=== PATIENT | female | born 1965 | race Caucasian/White ===

== ENCOUNTER → 2017-09-06 | Outpatient (REF) | payer OTHER ==
[2017-09-06 17:18] LABS: FREE T4 0.89 NG/DL (0.76-1.46)
== END ==
LOC: M SFHCCLAY 11:01
DX: E03.9 Hypothyroidism, unspecified (principal)

== ENCOUNTER → 2017-12-13 | Outpatient (REF) | payer OTHER ==
[2017-12-13 16:56] LABS: FREE T4 1.27 NG/DL (0.76-1.46)
== END ==
LOC: M SFHCCLAY 13:22
DX: E03.9 Hypothyroidism, unspecified (principal)

== ENCOUNTER → 2018-07-25 | Outpatient (REF) | payer OTHER ==
[2018-07-25 13:01] LABS: INFLUENZA A AMPLIFICATION POSITIVE (NEGATIVE); INFLUENZA B AMPLIFICATION NEGATIVE (NEGATIVE)
== END ==
LOC: M LAB REF 11:50
PROVIDERS: ATTEND Physician Assistant
DX: J11.1 Influenza due to unidentified influenza virus with other respiratory manifestations (principal)

== ENCOUNTER → 2018-08-07 | Outpatient (REF) | payer OTHER ==
[2018-08-07 17:16] LABS: HEMATOCRIT 41.9 % (36.0-47.0); HEMOGLOBIN 14.2 g/dl (12.0-15.5); MEAN CORPUSCULAR HEMOGLOBIN 30.1 pg (27.0-33.0); MEAN CORPUSCULAR HGB CONC 33.9 g/dl (32.0-36.5); PLATELET COUNT, AUTOMATED 258 10^3/uL (150-450); RED BLOOD COUNT 4.71 10^6/uL (4.00-5.40)
[2018-08-07 17:28] LABS: ALBUMIN 3.4 GM/DL (3.2-5.2); ALT/SGPT 33 U/L (12-78); BILIRUBIN,TOTAL 0.3 MG/DL (0.2-1.0); BLOOD UREA NITROGEN 25 MG/DL (7-18); CALCIUM LEVEL 8.2 MG/DL (8.5-10.1); CARBON DIOXIDE LEVEL 30 MEQ/L (21-32); CHLORIDE LEVEL 106 MEQ/L (98-107); CREATININE FOR GFR 0.82 MG/DL (0.55-1.30); GLOMERULAR FILTRATION RATE > 60.0 (>51); GLUCOSE, FASTING 95 MG/DL (70-100); POTASSIUM SERUM 3.9 MEQ/L (3.5-5.1); SODIUM LEVEL 141 MEQ/L (136-145); TOTAL PROTEIN 6.9 GM/DL (6.4-8.2)
[2018-08-07 17:29] LABS: WHITE BLOOD COUNT 14.3 10^3/uL (4.0-10.0)
[2018-08-07 18:53] LABS: ATYPICAL LYMPH 2 % (0-5); BASOPHILS 1 % (0-4); EOSINOPHILS 1 % (0-5); LYMPHOCYTES 39 % (16-52); MONOCYTES 4 % (0-8); NEUTROPHILS 53 % (35-75); PLATELET ESTIMATE NORMAL (NORMAL)
[2018-08-07 18:59] LABS: SMUDGE CELLS 1+
== END ==
LOC: M SFHCCLAY 11:20
PROVIDERS: ATTEND Nurse Practitioner Family
DX: J44.1 Chronic obstructive pulmonary disease with (acute) exacerbation (principal); R73.9 Hyperglycemia, unspecified

== ENCOUNTER → 2018-09-05 | Outpatient (REF) | payer OTHER | LOC: M SFHCCLAY 11:38 | PROVIDERS: ATTEND Family Medicine | DX: R35.0 Frequency of micturition (principal) ==

== ENCOUNTER → 2019-01-30 | Outpatient (REF) | payer OTHER ==
[2019-01-30 17:13] LABS: APPEARANCE, URINE HAZY (CLEAR); BACTERIA, URINE AUTO 1+ (NEGATIVE); BILIRUBIN, URINE AUTO NEGATIVE (NEGATIVE); BLOOD, URINE BLOOD NEGATIVE (NEGATIVE); COLOR, URINE YELLOW (YELLOW); GLUCOSE, URINE (UA) AUTO NEGATIVE (NEGATIVE); KETONE, URINE AUTO NEGATIVE (NEGATIVE); LEUKOCYTE ESTERASE, URINE AUTO NEGATIVE (NEGATIVE); NITRITE, URINE AUTO NEGATIVE (NEGATIVE); PROTEIN, URINE AUTO NEGATIVE (NEGATIVE); RBC, URINE AUTO 4 /HPF (0-3); SPECIFIC GRAVITY URINE AUTO 1.015 (1.002-1.035); SQUAMOUS EPITHELIAL CELL UR AU 2 /HPF (0-6); UROBILINOGEN, URINE AUTO 0.2 mg/dL (0.0-2.0); WBC, URINE AUTO 1 /HPF (0-3)
== END ==
LOC: M SFHCCLAY 16:14
PROVIDERS: ATTEND Family Medicine
DX: R30.0 Dysuria (principal)

== ENCOUNTER → 2019-02-04 | Outpatient (REF) | payer OTHER ==
[2019-02-04 16:58] LABS: HEMATOCRIT 42.9 % (36.0-47.0); HEMOGLOBIN 14.4 g/dl (12.0-15.5); MEAN CORPUSCULAR HEMOGLOBIN 31.2 pg (27.0-33.0); MEAN CORPUSCULAR HGB CONC 33.6 g/dl (32.0-36.5); MEAN CORPUSCULAR VOLUME 93.1 fl (80.0-96.0); PLATELET COUNT, AUTOMATED 176 10^3/uL (150-450); RED BLOOD COUNT 4.61 10^6/uL (4.00-5.40); WHITE BLOOD COUNT 6.4 10^3/uL (4.0-10.0)
[2019-02-04 17:19] LABS: ALBUMIN 3.8 GM/DL (3.2-5.2); ALT/SGPT 25 U/L (12-78); BILIRUBIN,TOTAL 0.3 MG/DL (0.2-1.0); BLOOD UREA NITROGEN 13 MG/DL (7-18); CALCIUM LEVEL 9.3 MG/DL (8.5-10.1); CARBON DIOXIDE LEVEL 27 MEQ/L (21-32); CHLORIDE LEVEL 107 MEQ/L (98-107); CREATININE FOR GFR 0.88 MG/DL (0.55-1.30); GLOMERULAR FILTRATION RATE > 60.0 (>51); GLUCOSE, FASTING 77 MG/DL (70-100); SODIUM LEVEL 142 MEQ/L (136-145); TOTAL PROTEIN 7.3 GM/DL (6.4-8.2)
[2019-02-05 13:19] LABS: ALBUMIN % 58.9 % (55.8-66.1); ALPHA-1-GLOBULIN % 4.4 % (2.9-4.9); ALPHA-1-GLOBULINS 0.32 GM/DL (0.17-0.41); ALPHA-2-GLOBULINS 0.81 GM/DL (0.42-0.99); ALPHA-2-GLOBULINS % 11.1 % (7.1-11.8); BETA-1-GLOBULINS 0.39 GM/DL (0.28-0.60); BETA-1-GLOBULINS % 5.4 % (4.7-7.2); BETA-2-GLOBULINS 0.31 GM/DL (0.19-0.55); BETA-2-GLOBULINS % 4.3 % (3.2-6.5); GAMMA GLOBULIN % 15.9 % (11.1-18.8); GAMMA GLOBULINS 1.16 GM/DL (0.65-1.58)
== END ==
LOC: M SFHCCLAY 12:52
PROVIDERS: ATTEND Family Medicine
DX: R30.0 Dysuria (principal); D89.2 Hypergammaglobulinemia, unspecified; K74.3 Primary biliary cirrhosis

== ENCOUNTER → 2019-04-07 | Outpatient (REF) | payer OTHER ==
[2019-04-07 17:12] LABS: BASO # 0.1 10^3/uL (0.0-0.2); EOS # 0.2 10^3/uL (0.0-0.5); EOS % 2.5 % (0.0-3.0); HEMATOCRIT 44.7 % (36.0-47.0); HEMOGLOBIN 14.7 g/dl (12.0-15.5); LYMPH # 3.4 10^3/uL (1.5-5.0); LYMPH % 40.9 % (24.0-44.0); MEAN CORPUSCULAR HEMOGLOBIN 31.1 pg (27.0-33.0); MEAN CORPUSCULAR HGB CONC 32.9 g/dl (32.0-36.5); MEAN CORPUSCULAR VOLUME 94.5 fl (80.0-96.0); MONO # 0.6 10^3/uL (0.0-0.8); MONO % 7.6 % (0.0-5.0); NEUTROPHILS % 47.8 % (36.0-66.0); PLATELET COUNT, AUTOMATED 231 10^3/uL (150-450); RED BLOOD COUNT 4.73 10^6/uL (4.00-5.40); WHITE BLOOD COUNT 8.3 10^3/uL (4.0-10.0)
[2019-04-07 17:28] LABS: HEMOGLOBIN A1c 5.5 %
[2019-04-07 17:43] LABS: ALBUMIN 3.7 GM/DL (3.2-5.2); ALT/SGPT 32 U/L (12-78); BILIRUBIN,TOTAL 0.2 MG/DL (0.2-1.0); BLOOD UREA NITROGEN 19 MG/DL (7-18); CALCIUM LEVEL 8.9 MG/DL (8.5-10.1); CARBON DIOXIDE LEVEL 28 MEQ/L (21-32); CHLORIDE LEVEL 104 MEQ/L (98-107); CREATININE FOR GFR 0.84 MG/DL (0.55-1.30); FREE T4 1.27 NG/DL (0.76-1.46); GLOMERULAR FILTRATION RATE > 60.0 (>51); GLUCOSE, FASTING 106 MG/DL (70-100); POTASSIUM SERUM 4.3 MEQ/L (3.5-5.1); SODIUM LEVEL 139 MEQ/L (136-145); TOTAL PROTEIN 7.1 GM/DL (6.4-8.2)
== END ==
LOC: M SFHCCLAY 13:59
PROVIDERS: ATTEND Nurse Practitioner Family
DX: R63.1 Polydipsia (principal); K74.3 Primary biliary cirrhosis; J40 Bronchitis, not specified as acute or chronic; J45.909 Unspecified asthma, uncomplicated; J44.1 Chronic obstructive pulmonary disease with (acute) exacerbation; E03.9 Hypothyroidism, unspecified

== ENCOUNTER → 2019-08-11 | Outpatient (CLI) | payer OTHER ==
--- NOTE | 2019-08-12 03:45 | REP ---
Clinical: Left hand pain. Technique: AP, lateral, bilateral oblique views left hand. Comparison: 06/04/2008 . Findings: The osseous structures and joint spaces are intact and normal. There is no evidence for acute fracture or dislocation. Surrounding soft tissues are unremarkable. No subcutaneous emphysema or radiodense foreign body. Impression: Age-appropriate examination. Electronically Signed by Donn Romero MD 08/12/2019 03:36 A
== END ==
LOC: M CLY 13:59
PROVIDERS: ATTEND Nurse Practitioner Family
DX: M79.642 Pain in left hand (principal)

== ENCOUNTER → 2019-10-28 | Outpatient (REF) | payer OTHER ==
[2019-10-28 11:30] LABS: HEMATOCRIT 43.7 % (36.0-47.0); HEMOGLOBIN 14.3 g/dl (12.0-15.5); MEAN CORPUSCULAR HEMOGLOBIN 29.8 pg (27.0-33.0); MEAN CORPUSCULAR HGB CONC 32.7 g/dl (32.0-36.5); PLATELET COUNT, AUTOMATED 217 10^3/uL (150-450); WHITE BLOOD COUNT 7.9 10^3/uL (4.0-10.0)
[2019-10-28 12:09] LABS: ALBUMIN 3.8 GM/DL (3.2-5.2); ALT/SGPT 49 U/L (12-78); BILIRUBIN,TOTAL 0.4 MG/DL (0.2-1.0); BLOOD UREA NITROGEN 9 MG/DL (7-18); CALCIUM LEVEL 9.3 MG/DL (8.5-10.1); CARBON DIOXIDE LEVEL 25 MEQ/L (21-32); CHLORIDE LEVEL 107 MEQ/L (98-107); CREATININE FOR GFR 0.69 MG/DL (0.55-1.30); FREE T4 1.59 NG/DL (0.76-1.46); GLOMERULAR FILTRATION RATE > 60.0 (>51); GLUCOSE, FASTING 104 MG/DL (70-100); POTASSIUM SERUM 3.9 MEQ/L (3.5-5.1); SODIUM LEVEL 139 MEQ/L (136-145); THYROID STIMULATING HORMONE 0.773 uIU/ML (0.358-3.740); TOTAL PROTEIN 7.6 GM/DL (6.4-8.2)
== END ==
LOC: M SFHCCLAY 08:57
PROVIDERS: ATTEND Nurse Practitioner Family
DX: R30.0 Dysuria (principal); D89.2 Hypergammaglobulinemia, unspecified; K74.3 Primary biliary cirrhosis; J45.909 Unspecified asthma, uncomplicated; J44.1 Chronic obstructive pulmonary disease with (acute) exacerbation; E03.9 Hypothyroidism, unspecified; R63.1 Polydipsia; J40 Bronchitis, not specified as acute or chronic

== ENCOUNTER → 2020-07-13 | Outpatient (REF) | payer OTHER ==
[2020-07-13 17:09] LABS: ALBUMIN 3.8 GM/DL (3.2-5.2); ALT/SGPT 82 U/L (12-78); BILIRUBIN,TOTAL 0.2 MG/DL (0.2-1.0); BLOOD UREA NITROGEN 9 MG/DL (7-18); CALCIUM LEVEL 8.7 MG/DL (8.5-10.1); CARBON DIOXIDE LEVEL 27 MEQ/L (21-32); CHLORIDE LEVEL 107 MEQ/L (98-107); CHOLESTEROL LEVEL 237 MG/DL (<200); CHOLESTEROL RISK RATIO 3.434 (<5); CREATININE FOR GFR 0.78 MG/DL (0.55-1.30); FREE T4 1.57 NG/DL (0.76-1.46); GLOMERULAR FILTRATION RATE > 60.0 (>51); GLUCOSE, FASTING 92 MG/DL (70-100); HDL CHOLESTEROL 69 MG/DL (>40); LDL CHOLESTEROL 147 MG/DL (<100); NON-HDL-C 168 MG/DL; POTASSIUM SERUM 4.4 MEQ/L (3.5-5.1); SODIUM LEVEL 141 MEQ/L (136-145); TOTAL PROTEIN 7.3 GM/DL (6.4-8.2); TRIGLYCERIDES LEVEL 107 MG/DL (<150)
[2020-07-13 18:31] LABS: HEMOGLOBIN A1c 5.5 %
== END ==
LOC: M SFHCCLAY 11:15
PROVIDERS: ATTEND Nurse Practitioner Family
DX: R73.03 Prediabetes (principal)

== ENCOUNTER 2020-10-09 01:12 | Inpatient (IN) | payer OTHER ==
[~2020-10-09] VITALS: Ht 152.4 cm; Wt 67.7 kg
[2020-10-09] MEDS ORDERED: PRED20TA PO (01:39)
[2020-10-09] MEDS ORDERED: INCR1INH INH (01:39)
[2020-10-09] MEDS ORDERED: LEVOTAB10 PO (01:39)
[2020-10-09] MEDS ORDERED: LEVO75TA4 PO (01:39)
[2020-10-09] MEDS ORDERED: ALBU8.5H INH (01:39)
[2020-10-09] MEDS ORDERED: DOXY100C37 PO (01:39)
[2020-10-09] MEDS ORDERED: FLUT1INH3 INH (01:39)
[2020-10-09] MEDS ORDERED: NYST50SS PO (01:39)
[2020-10-09] MEDS ORDERED: LORA-674 PO (01:39)
[2020-10-09] MEDS ORDERED: D3400CAP PO (01:39)
[2020-10-09] MEDS ORDERED: BENZ-18 PO (01:39)
[2020-10-09] MEDS ORDERED: VITA500C24 PO (01:39)
[2020-10-09] MEDS ORDERED: MV M PO (01:39)
[2020-10-09] MEDS ORDERED: URSO300C3 PO (01:39)
[2020-10-09 01:45] LABS: BASO % 0.2 % (0.0-1.0); HEMATOCRIT 41.2 % (36.0-47.0); HEMOGLOBIN 13.6 g/dl (12.0-15.5); LYMPH # 2.8 10^3/uL (1.5-5.0); LYMPH % 21.5 % (24.0-44.0); MEAN CORPUSCULAR HEMOGLOBIN 30.1 pg (27.0-33.0); MEAN CORPUSCULAR VOLUME 91.2 fl (80.0-96.0); MONO # 0.9 10^3/uL (0.0-0.8); MONO % 6.8 % (2.0-8.0); NEUTROPHILS # 9.2 10^3/uL (1.5-8.5); NEUTROPHILS % 70.4 % (36.0-66.0); PLATELET COUNT, AUTOMATED 252 10^3/uL (150-450); RED BLOOD COUNT 4.52 10^6/uL (4.00-5.40)
[2020-10-09 02:19] LABS: ALBUMIN 3.9 GM/DL (3.2-5.2); ALT/SGPT 72 U/L (12-78); BILIRUBIN,DIRECT < 0.1 MG/DL (0.0-0.2); BILIRUBIN,TOTAL 0.4 MG/DL (0.2-1.0); BLOOD UREA NITROGEN 14 MG/DL (7-18); CARBON DIOXIDE LEVEL 27 MEQ/L (21-32); CHLORIDE LEVEL 106 MEQ/L (98-107); CREATININE FOR GFR 0.65 MG/DL (0.55-1.30); GLOMERULAR FILTRATION RATE > 60.0 (>51); GLUCOSE, FASTING 108 MG/DL (70-100); POTASSIUM SERUM 4.6 MEQ/L (3.5-5.1); SODIUM LEVEL 141 MEQ/L (136-145)
--- NOTE | 2020-10-09 02:28 | REPVR ---
PROCEDURE INFORMATION: Exam: XR Chest Exam date and time: 10/09/20 (1:59am) Age: 54 years old Clinical indication: Dyspnea and cough TECHNIQUE: Imaging protocol: XR of the chest Views: 1 view COMPARISON: No relevant prior studies available FINDINGS: Lungs: Unremarkable. No consolidation. Pleural spaces: Unremarkable. No pleural effusions. No pneumothorax. Heart/Mediastinum: Unremarkable. No cardiomegaly. Bones/joints: Unremarkable. IMPRESSION: No acute findings. Electronically signed by: Brittaney Banerjee On 10/09/2020 02:28:06 AM
[2020-10-09] MEDS ORDERED: methylPREDNISolone 125MG 2ML VIAL IV ONE (02:50)
[2020-10-09] MEDS: COMBIVENT RESPIMAT 100-20MCG INHALER 4GM INH SCH ×3 (03:09→03:51)
[2020-10-09] MEDS ORDERED: ALBUTEROL SULFATE 2.5 MG/0.5 ML INH NEB SOLN INH ONE (05:10)
[2020-10-09] MEDS ORDERED: MOM 30ML SUSPENSION UDC PO PRN (05:40)
--- NOTE | 2020-10-09 06:36 | HPEPDOC ---
[facility] Medical History & Physical Date of Admission October 09, 2020 Date of Service: October 09, 2020 Attending Physician: RAJENDRA RICE MD History and Physical CHIEF COMPLAINT: cough HISTORY OF PRESENT ILLNESS: Jacuqelyn Simpson is a 54 year old female who presented to the ED today due to worsening cough and shortness of breath. She states she started feeling unwell about 10 days ago with worsening productive cough. She noticed a clear, thick sputum which is now difficult to produce despite continued chest congestion. She has also had some shortness of breath which started when she was doing her typical work outs (running). She states she feels she cannot breath due to all the coughing. She denies fevers or chills at home. She states she went to her PCP on Saturday and was prescribed prednisone to take. She states she had no improvement from this and went to urgent care on Saturday where she was prescribed doxycycline. She states she picked this up but felt she needed to be seen in the ED due to the severity of her symptoms. Additionally, she was diagnosed at urgent care with oral thrush. She attribute this to using a steroid inhaler and never being told to rinse her mouth afterward. She has some throat soreness. No difficulty or pain with swallowing. She states she has had thrush in the past as well. PAST MEDICAL HISTORY: COPD Asthma Hypothyroidism Primary biliary cirrhosis Low back pain Allergic rhinitis PAST SURGICAL HISTORY: Back surgery x2 section x2 SOCIAL HISTORY: Former smoker 1 pack per week in 20s-30s, unsure when she quit. Secondhand smoke in her home growing up No alcohol use. No illicit substance use. Lives at home with two children and nephew. Dogs and cats at home. FAMILY HISTORY: Adopted, unsure of medical history. Her 2 children are healthy. ALLERGIES: Please see below. REVIEW OF SYSTEMS: CONSTITUTIONAL: Denies fevers, chills, night sweats, fatigue, unexpected change in weight. HEENT: Denies change in vision, change in hearing. CARDIOVASCULAR: Denies chest pain, palpitations, lightheadedness. RESPIRATORY: Per HPI GASTROINTESTINAL: Denies nausea, vomiting, abdominal pain, diarrhea, constipation, blood in stool. GENITOURINARY: Denies dysuria, urinary frequency, urinary urgency. SKIN: Denies rash, lesions. MUSCULOSKELETAL: Denies joint pain or muscle aches. NEUROLOGICAL: Denies headache, dizziness, weakness. PSYCHIATRIC: Denies change in mood. HOME MEDICATIONS: Please see below. PHYSICAL EXAMINATION: VITAL SIGNS: see below GENERAL: Alert, comfortable, in no acute distress HEENT: Normocephalic, atraumatic, sclera anicteric, moist mucous membranes, throat with white patches NECK: Supple, trachea midline, no lymphadenopathy CARDIOVASCULAR: Regular rate and rhythm, normal S1 and S2. No murmurs, rubs, or gallops RESPIRATORY: Diffuse wheezing throughout bilateral lung de la rosa ABDOMEN: Soft, nontender, nondistended, bowel sounds present EXTREMITIES: No cyanosis or edema. Pulses 2+/4 in bilateral upper and lower extremities SKIN: [place], warm, dry NEUROLOGIC: Alert and oriented x3 to person, place and time. No focal deficits appreciated PSYCHIATRIC: Mood and affect appropriate LABORATORY DATA: See below. IMAGING: - CXR No acute findings. MICROBIOLOGY: Please see below. ASSESSMENT: 54 year old female with PMHx of COPD, asthma, hypothyroidism, PBC, allergic rhinitis and low back pain who presented to the ED with worsening productive cough found to be hypoxic, admitted for management of COPD exacerbation PLAN: # Asthma/COPD with acute exacerbation - 2/2 viral bronchitis vs allergic rhinitis - CXR negative for PNA. check sputum culture and procalcitonin. - will start on antibiotics given the severity of her exacerbation, Moxifloxacin day #1 - s/p 125mg IV methylprednisolone in the ED, continue on 80mg q8h - continue on scheduled duonebs q6h with prn albuterol nebs - start on mucinex. ordered acapella and inspiratory spirometer - continue on chronic inhaled therapy, substitutions made for home inhalers based on hospital formulary # Oral candidiasis - 2/2 inhaled steroid, patient has been educated on rinsing mouth after use - continue nystatin suspension day # 1 #Allergic rhinitis - continue on twice daily antihistamines #Hypothyroidism - continue on levothyroxine #Primary biliary cirrhosis - continue on ursodiol DVT prophylaxis: SC lovenox Disposition: admitted to med/surg pending clinical improvement Vital Signs Vital Signs Date Time Temp Pulse Resp B/P (MAP) Pulse Ox O2 Delivery O2 Flow Rate FiO2 10/09/20 04:00 89 18 137/74 (95) 89 Room Air 10/09/20 01:24 98.1 Laboratory Data Labs 24H Laboratory Tests 2 10/09/20 01:40: Immature Granulocyte % (Auto) 1.1, Neutrophils (%) (Auto) 70.4H, Lymphocytes (%) (Auto) 21.5L, Monocytes (%) (Auto) 6.8, Eosinophils (%) (Auto) 0.0, Basophils (%) (Auto) 0.2, Neutrophils # (Auto) 9.2H, Lymphocytes # (Auto) 2.8, Monocytes # (Auto) 0.9H, Eosinophils # (Auto) 0.0, Basophils # (Auto) 0.0, Nucleated Red Blood Cells % (auto) 0.0, Anion Gap 8, Glomerular Filtration Rate > 60.0, Calcium Level 10.0, Total Bilirubin 0.4, Direct Bilirubin < 0.1, Aspartate Amino Transf (AST/SGOT) 64H, Alanine Aminotransferase (ALT/SGPT) 72, Alkaline Phosphatase 123H, Total Protein 8.0, Albumin 3.9, Albumin/Globulin Ratio 1.0L CBC/BMP Laboratory Tests 10/09/20 01:40 Microbiology Microbiology 10/09/20 Respiratory Virus Panel (PCR) ([facility]) - Final, Complete Home Medications Scheduled Ascorbic Acid (Vitamin C) 500 Mg Capsule, 500 MG PO DAILY Benzonatate (Benzonatate) 100 Mg Capsule, 100 MG PO TID Cholecalciferol (Vitamin D3) (Vitamin D3) 10 Mcg Capsule, 50 MCG PO DAILY Doxycycline Monohydrate (Doxycycline Monohydrate) 100 Mg Capsule, 100 MG PO BID STARTED 10/08/20 X 7 DAYS Fluticasone Propion/Salmeterol (Fluticasone-Salmeterol 232-14) 1 Each Aer.pow.ba, 1 PUFF INH BID Levocetirizine Dihydrochloride (Levocetirizine Dihydrochloride) 5 Mg Tablet, 5 MG PO QHS Levothyroxine Sodium (Levothyroxine Sodium) 75 Mcg Tablet, 75 MCG PO DAILY Loratadine (Loratadine) 10 Mg Tablet, 10 MG PO DAILY Mv-Mn/Folic/Lutein/Herbal 293 (Alive Women's 50 Plus Vitamins) 120 Mcg-150 Mcg- 37.5 Mg Tab.chew, 1 EACH PO DAILY Nystatin (Nystatin Oral Susp) 100,000 Unit/1 Ml Oral.susp, 5 ML PO QID Prednisone (Prednisone) 20 Mg Tablet, 40 MG PO DAILY STARTED 10/08/20 TAKE 40MGS DAILY X 3 DAYS,THEN 20 MGS DAILY X 4DAYS Umeclidinium Roy (Incruse Ellipta) 62.5 Mcg Blst.w.dev, 1 PUFF INH DAILY Ursodiol (Ursodiol) 300 Mg Capsule, 300 MG PO BID Scheduled PRN Albuterol Sulfate (Albuterol Sulfate Hfa) 8.5 Gm Hfa.aer.ad, 2 PUFFS INH PRN PRN for BRONCHOSPASM Allergies Coded Allergies: Cephalosporins (Verified Allergy, Mild, HIVES, 10/09/20) cyclobenzaprine (Verified Allergy, Mild, HIVES, 10/09/20) morphine (Verified Allergy, Mild, HIVES, 10/09/20) codeine (Verified Adverse Reaction, Mild, GI UPSET, 10/09/20) hydrocodone (Verified Adverse Reaction, Unknown, GI UPSET, 10/09/20) GME ATTESTATION GME ATTESTATION My faculty preceptor for this patient encounter was physically present during the encounter and was fully available. All aspects of the patient interview, examination, medical decision making process, and medical care plan development were reviewed and approved by the faculty preceptor. The faculty preceptor is aware and concurs with the plan as stated in the body of this note and will attest to such by his/her cosignature. ATTENDING NOTE IHamida, have independently examined this patient and performed my own physical exam, as well as reviewed the documentation and edited where necessary. I have discussed in detail with the resident / student the findings and plan of treatment as documented by the resident / student and edited their note. I agree with their findings and treatment plan and have edited their documentation. I will continue to follow the patient during this hospital stay. DEVANTE MORRIS D.O. October 09, 2020 05:30 RAJENDRA RICE MD October 10, 2020 02:26
[2020-10-09] MEDS: IPRATROPIUM 0.5MG/ALBUTEROL 2.5MG INH SOL UD 3ML (DUONEB) NEB SCH ×3 (08:00→19:22)
[2020-10-09] MEDS: MOXIFLOXACIN 400 MG TAB PO SCH (08:28)
[2020-10-09 08:51] VITALS: BP 132/78
[2020-10-09] MEDS ORDERED: guaiFENesin ER 600 MG TAB PO SCH (09:00)
[2020-10-09] MEDS: FLUTICASONE HFA 220 MCG 12 GM INHALER (FLOVENT) INH SCH ×2 (09:38→19:22)
[2020-10-09] MEDS: ENOXAPARIN 40MG/0.4ML SYRINGE (J1650 PER 10MG) SC SCH (09:40)
[2020-10-09] MEDS: NYSTATIN 500,000 U/5 ML SUSP UDC PO SCH ×4 (09:40→20:17)
[2020-10-09] MEDS: LEVOTHYROXINE 75MCG TABLET (0.075MG) PO SCH (09:40)
[2020-10-09] MEDS: ASCORBIC ACID 500 MG TAB PO SCH (09:40)
[2020-10-09] MEDS: LORATADINE 10 MG TAB PO SCH (09:40)
--- NOTE | 2020-10-09 10:10 | ECGEPIP ---
[facility] - ED Test Date: 2020-10-09 Pat Name: ANALI CASEY Department: Room: [facility] Gender: Female Composite Technician: [place] : 1965 Requested By: MAKI Vincent Order Number: [id number] Reading MD: Kenneth Yoo Measurements Intervals [place] Rate: 85 P: 75 PA: 130 QRS: 66 QRSD: 68 T: 84 QT: 334 QTc: 397 Interpretive Statements Normal sinus rhythm POOR R WAVE PROGRESSION NO PRIORS FOR COMPARISON Electronically Signed on 10-09-2020 10:09:42 EDT by Kenneth Yoo
[2020-10-09] MEDS: ursodioL 300 MG CAP PO SCH ×2 (10:43→20:18)
[2020-10-09] MEDS: TIOTROPIUM INHALER/CAPSULE (SPIRIVA) INH SCH (10:52)
--- NOTE | 2020-10-09 11:57 | IPNPDOC ---
Text Note Date of Service The patient was seen on 10/09/20. NOTE Subjective: Patient is a 54-year-old female with a PMHx of COPD / Asthma, Hypothyroidism, Primary biliary cirrhosis, Chronic back pain presents to the ER with worsening shortness of breath and cough. Patient was recently started on prednisone on Saturday after she had seen her PCP and Doxycycline was added Saturday after she went to urgent care. Upon arrival to ER, patient was found to be wheezing and was admitted to the hospitalist service for further evaluation and treatment. Patient was seen and examined at the bedside. Patient is reported improvement of her breathing still reports some wheezing and a cough that she is unable to expectorate sputum. Denies any chest pain or palpitations. No nausea, vomiting, abdominal pain or diarrhea. Objective: Vitals (See below) General: Lying in bed, no acute distress, comfortable, AAOx3 HEENT: NC, AT CVS: RRR, +S1S2 Lungs: Fair air entry b/l, no rhonchi, crackles. Faint wheezing can be appreciated at bases Abdomen: Soft, nondistended and nontender Extremities: - Edema, - Calf tenderness Imaging: CXR 10/09: No acute findings. Assessment and plan: Acute exacerbation of Asthma/COPD - possibly 2/2 viral bronchitis / allergic rhinitis - Currently patient has reported slight improvement of her symptoms - Currently requiring supplemental oxygen and 1-2 L - Physical reveals faint expiratory wheezing - c/w Solumedrol; will reduce dose - c/w inhaled therapy as ordered - c/w Moxifloxacin (Day #1) - Will increase dose of Mucinex / c/w Acapella + Incentive spirometry Oral candidiasis - likely 2/2 inhaled steroid - Patient has been educated on rinsing mouth after use - c/w Nystatin Allergic rhinitis - c/w Loratadine / Cetirizine Hypothyroidism - c/w Levothyroxine Primary biliary cirrhosis - c/w Ursodiol DVT prophylaxis - c/w Lovenox Disposition: - Awaiting clinical improvement Brittney LUNA I+O Brittney LUNA I+O Laboratory Tests 10/09/20 01:40 Vital Signs Date Time Temp Pulse Resp B/P (MAP) Pulse Ox O2 Delivery O2 Flow Rate FiO2 10/09/20 08:26 98.1 88 18 157/74 (101) 95 Nasal Cannula 2.0 LINETTE BENNETT MD October 09, 2020 11:57
[2020-10-09] MEDS ORDERED: methylPREDNISolone 125MG 2ML VIAL IV SCH (12:00)
[2020-10-09 14:00] VITALS: BP 132/66
[2020-10-09] MEDS: guaiFENesin ER 600 MG TAB PO SCH (20:17)
[2020-10-09] MEDS: methylPREDNISolone 125MG 2ML VIAL IV SCH (20:17)
[2020-10-09] MEDS: CETIRIZINE (ZyrTEC) 10 MG TAB PO SCH (20:18)
[2020-10-09] MEDS: RAMELTEON 8 MG TAB (ROZEREM) PO SCH (21:40)
[2020-10-09 22:00] VITALS: BP 134/70
[2020-10-10] VITALS (7 sets, daily range): BP systolic 131–147; BP diastolic 61–72; O2SAT 88–94
[2020-10-10] MEDS: IPRATROPIUM 0.5MG/ALBUTEROL 2.5MG INH SOL UD 3ML (DUONEB) NEB SCH ×4 (01:39→19:27)
[2020-10-10] MEDS: methylPREDNISolone 125MG 2ML VIAL IV SCH ×3 (04:59→20:05)
[2020-10-10] MEDS: MOXIFLOXACIN 400 MG TAB PO SCH (05:00)
[2020-10-10 06:03] LABS: HEMATOCRIT 40.4 % (36.0-47.0); HEMOGLOBIN 13.2 g/dl (12.0-15.5); MEAN CORPUSCULAR HEMOGLOBIN 29.8 pg (27.0-33.0); MEAN CORPUSCULAR HGB CONC 32.7 g/dl (32.0-36.5); MEAN CORPUSCULAR VOLUME 91.2 fl (80.0-96.0); RED BLOOD COUNT 4.43 10^6/uL (4.00-5.40); WHITE BLOOD COUNT 14.9 10^3/uL (4.0-10.0)
[2020-10-10 06:04] LABS: BASO % 0.1 % (0.0-1.0); LYMPH # 1.5 10^3/uL (1.5-5.0); LYMPH % 10.1 % (24.0-44.0); MONO # 0.6 10^3/uL (0.0-0.8); MONO % 3.7 % (2.0-8.0); NEUTROPHILS # 12.7 10^3/uL (1.5-8.5); PLATELET COUNT, AUTOMATED 258 10^3/uL (150-450)
[2020-10-10 06:40] LABS: ALBUMIN 3.6 GM/DL (3.2-5.2); ALT/SGPT 59 U/L (12-78); BILIRUBIN,TOTAL 0.3 MG/DL (0.2-1.0); BLOOD UREA NITROGEN 22 MG/DL (7-18); CALCIUM LEVEL 9.6 MG/DL (8.5-10.1); CARBON DIOXIDE LEVEL 28 MEQ/L (21-32); CHLORIDE LEVEL 104 MEQ/L (98-107); CREATININE FOR GFR 0.74 MG/DL (0.55-1.30); GLOMERULAR FILTRATION RATE > 60.0 (>51); GLUCOSE, FASTING 131 MG/DL (70-100); MAGNESIUM LEVEL 2.2 MG/DL (1.8-2.4); SODIUM LEVEL 138 MEQ/L (136-145); TOTAL PROTEIN 7.5 GM/DL (6.4-8.2)
[2020-10-10] MEDS: FLUTICASONE HFA 220 MCG 12 GM INHALER (FLOVENT) INH SCH ×2 (07:24→19:27)
[2020-10-10] MEDS: TIOTROPIUM INHALER/CAPSULE (SPIRIVA) INH SCH (07:24)
[2020-10-10] MEDS ORDERED: SODIUM CHLORIDE HYPERTONIC 3% 15ML NEB SOL INH PRN (08:20)
[2020-10-10] MEDS: LORATADINE 10 MG TAB PO SCH (09:03)
[2020-10-10] MEDS: ursodioL 300 MG CAP PO SCH ×2 (09:04→20:06)
[2020-10-10] MEDS: ENOXAPARIN 40MG/0.4ML SYRINGE (J1650 PER 10MG) SC SCH (09:04)
[2020-10-10] MEDS: NYSTATIN 500,000 U/5 ML SUSP UDC PO SCH ×4 (09:04→20:05)
[2020-10-10] MEDS: ASCORBIC ACID 500 MG TAB PO SCH (09:04)
[2020-10-10] MEDS: LEVOTHYROXINE 75MCG TABLET (0.075MG) PO SCH (09:04)
[2020-10-10] MEDS: guaiFENesin ER 600 MG TAB PO SCH ×2 (09:04→20:06)
--- NOTE | 2020-10-10 09:22 | IPNPDOC ---
Text Note Date of Service The patient was seen on 10/10/20. NOTE Subjective: Patient is a 54-year-old female with a PMHx of COPD / Asthma, Hypothyroidism, Primary biliary cirrhosis, Chronic back pain presents to the ER with worsening shortness of breath and cough. Patient was recently started on prednisone on Saturday after she had seen her PCP and Doxycycline was added Saturday after she went to urgent care. Upon arrival to ER, patient was found to be wheezing and was admitted to the hospitalist service for further evaluation and treatment. Patient was seen and examined at the bedside. Patient reports that her lower chest congestion has improved, however, she feels that she has mucus in her upper airways, but is unable to be clear. She denies any difficulty with swallowing, nausea, vomiting, abdominal pain or diarrhea. Denies any urinary discomfort. Reports her cough and wheezing have had improvement. Objective: Vitals (See below) General: Patient is sitting up in bed, appears to be comfortable, not in acute distress, oriented to person, place and time HEENT: Normocephalic and atraumatic CVS: +S1S2 Lungs: There is fair air entry bilaterally without any evidence of crackles or rhonchi. There is diffuse wheezing appreciated bilaterally Abdomen: Remains soft without distention or tenderness Extremities: Lower extremities are free of any pitting edema Imaging: CXR 10/09: No acute findings. Assessment and plan: Acute exacerbation of Asthma/COPD - possibly 2/2 viral bronchitis / allergic rhinitis - Reports improvement of breathing, but still reports inability to clear mucus - Currently requiring supplemental oxygen and 1-2 L - Physical reveals faint expiratory wheezing - Sputum culture 10/09: Pending - Respiratory panel 10/09: Negative - c/w Solumedrol; will reduce dose - c/w inhaled therapy as ordered - c/w Moxifloxacin (Day #2) - c/w Mucinex / Acapella / Incentive spirometry - Will add hypertonic saline nebulization / Chest PT Oral candidiasis - likely 2/2 inhaled steroid - Patient has been educated on rinsing mouth after use - c/w Nystatin Allergic rhinitis - c/w Loratadine / Cetirizine Hypothyroidism - c/w Levothyroxine Primary biliary cirrhosis - c/w Ursodiol DVT prophylaxis - c/w Lovenox Disposition: - Awaiting clinical improvement VS,Brittney, I+O VS, Fishbone, I+O Laboratory Tests 10/10/20 05:42 Vital Signs Date Time Temp Pulse Resp B/P (MAP) Pulse Ox O2 Delivery O2 Flow Rate FiO2 10/10/20 06:00 97.1 87 20 131/61 (84) 94 Nasal Cannula 2.0 I&O- Last 24 Hours up to 6 AM 10/10/20 06:00 Intake Total 5380 ml Output Total 3775 ml Balance 1605 ml LINETTE BENNETT MD October 10, 2020 09:22
[2020-10-10] MEDS ORDERED: ISOVUE-370 76% 100ML VIAL As Ordered ONE (14:22)
--- NOTE | 2020-10-10 15:13 | REP ---
INDICATION: SOB / Mucous COMPARISON: None. TECHNIQUE: Axial contrast enhanced images from the thoracic inlet to the upper abdomen using pulmonary embolus technique with multiplanar re-formations. 75 ml Isovue 370 intravenous contrast material administered without complication. This CT examination was performed using the following dose reduction techniques: Automated exposure control, adjustment of mA and/or kv according to the patient's size, and use of iterative reconstruction technique. FINDINGS: Satisfactory enhancement of the pulmonary vasculature is achieved and no filling defects are identified to suggest pulmonary embolus. Further evaluation of the mediastinum demonstrates normal thoracic aorta, heart and pericardium. The bilateral lung de la rosa demonstrate COPD/emphysematous changes without focal consolidation, effusion, or pneumothorax. Tracheobronchial tree is relatively patent although very subtle scattered mucous plugging to the lower lobe bronchioles cannot be excluded. No adenopathy noted. Surrounding musculoskeletal structures intact IMPRESSION: No evidence for pulmonary embolus. No significant acute mediastinal or pleural parenchymal process. <Electronically signed by Donn Romero > 10/10/20 [id number]
[2020-10-10] MEDS: ALBUTEROL SULFATE 2.5 MG/0.5 ML INH NEB SOLN NEB PRN (16:24)
[2020-10-10] MEDS: hydrOXYzine 10MG/5ML SYRUP PO PRN (18:13)
[2020-10-10] MEDS: RAMELTEON 8 MG TAB (ROZEREM) PO SCH (20:05)
[2020-10-10] MEDS: CETIRIZINE (ZyrTEC) 10 MG TAB PO SCH (20:06)
[2020-10-10] MEDS ORDERED: ONDANSETRON 4 MG ORAL DISINTEGRATING TAB SL PRN (22:15)
[2020-10-11 00:06] VITALS: O2SAT 97
[2020-10-11] MEDS: IPRATROPIUM 0.5MG/ALBUTEROL 2.5MG INH SOL UD 3ML (DUONEB) NEB SCH ×4 (01:02→19:34)
[2020-10-11] MEDS: methylPREDNISolone 125MG 2ML VIAL IV SCH ×3 (04:57→20:09)
[2020-10-11] MEDS: MOXIFLOXACIN 400 MG TAB PO SCH (05:00)
[2020-10-11 06:00] VITALS: BP 131/70
[2020-10-11 06:09] LABS: BASO % 0.2 % (0.0-1.0); HEMATOCRIT 43.1 % (36.0-47.0); HEMOGLOBIN 13.8 g/dl (12.0-15.5); LYMPH # 1.3 10^3/uL (1.5-5.0); LYMPH % 7.5 % (24.0-44.0); MEAN CORPUSCULAR HEMOGLOBIN 29.7 pg (27.0-33.0); MEAN CORPUSCULAR VOLUME 92.7 fl (80.0-96.0); MONO # 0.7 10^3/uL (0.0-0.8); MONO % 4.1 % (2.0-8.0); NEUTROPHILS # 15.6 10^3/uL (1.5-8.5); NEUTROPHILS % 87.1 % (36.0-66.0); PLATELET COUNT, AUTOMATED 301 10^3/uL (150-450); RED BLOOD COUNT 4.65 10^6/uL (4.00-5.40); WHITE BLOOD COUNT 17.9 10^3/uL (4.0-10.0)
[2020-10-11 06:32] LABS: ALBUMIN 3.5 GM/DL (3.2-5.2); ALT/SGPT 67 U/L (12-78); BILIRUBIN,TOTAL 0.2 MG/DL (0.2-1.0); BLOOD UREA NITROGEN 30 MG/DL (7-18); CARBON DIOXIDE LEVEL 29 MEQ/L (21-32); CHLORIDE LEVEL 107 MEQ/L (98-107); CREATININE FOR GFR 0.85 MG/DL (0.55-1.30); GLOMERULAR FILTRATION RATE > 60.0 (>51); GLUCOSE, FASTING 111 MG/DL (70-100); POTASSIUM SERUM 4.6 MEQ/L (3.5-5.1); SODIUM LEVEL 139 MEQ/L (136-145)
[2020-10-11] MEDS: TIOTROPIUM INHALER/CAPSULE (SPIRIVA) INH SCH (07:12)
[2020-10-11] MEDS: FLUTICASONE HFA 220 MCG 12 GM INHALER (FLOVENT) INH SCH ×2 (07:15→19:34)
[2020-10-11] MEDS: ursodioL 300 MG CAP PO SCH ×2 (09:19→20:09)
[2020-10-11] MEDS: LEVOTHYROXINE 75MCG TABLET (0.075MG) PO SCH (09:20)
[2020-10-11] MEDS: ENOXAPARIN 40MG/0.4ML SYRINGE (J1650 PER 10MG) SC SCH (09:20)
[2020-10-11] MEDS: NYSTATIN 500,000 U/5 ML SUSP UDC PO SCH ×4 (09:20→20:09)
[2020-10-11] MEDS: LORATADINE 10 MG TAB PO SCH (09:20)
[2020-10-11] MEDS: guaiFENesin ER 600 MG TAB PO SCH ×2 (09:20→20:09)
[2020-10-11] MEDS: ASCORBIC ACID 500 MG TAB PO SCH (09:20)
--- NOTE | 2020-10-11 10:25 | IPNPDOC ---
Text Note Date of Service The patient was seen on 10/11/20. NOTE Subjective: Patient seen and examined at bedside. No acute overnight events reported. Patient still complains of shortness of breath with cough and difficulty expectorating sputum. Objective: Vitals (See below) General: Sitting comfortably at edge of bed HEENT: Normocephalic and atraumatic CVS: +S1S2 Lungs: Diffuse wheezing Abdomen: Remains soft without distention or tenderness Extremities: No edema A/P: 54F with PMHx of COPD / Asthma, Hypothyroidism, Primary biliary cirrhosis, Chronic back pain presents to the ER with worsening shortness of breath and cough. Patient was recently started on prednisone on Saturday after she had seen her PCP and Doxycycline was added Saturday after she went to urgent care. Upon arrival to ER, patient was found to be wheezing and was admitted to the hospitalist service for further evaluation and treatment, admitted for COPD exacerbation. #Acute exacerbation of Asthma/COPD - possibly 2/2 viral bronchitis / allergic rhinitis - Reports improvement of breathing, but still reports inability to clear mucus - Currently requiring supplemental oxygen - Physical reveals faint expiratory wheezing - Sputum culture 10/09: Pending - Respiratory panel 10/09: Negative - c/w Solumedrol; will reduce dose - c/w inhaled therapy as ordered - c/w Moxifloxacin (Day #3) - c/w Mucinex / Acapella / Incentive spirometry - hypertonic saline nebulization / Chest PT #Oral candidiasis - likely 2/2 inhaled steroid - Patient has been educated on rinsing mouth after use - c/w Nystatin #Allergic rhinitis - c/w Loratadine / Cetirizine #Hypothyroidism - c/w Levothyroxine #Primary biliary cirrhosis - c/w Ursodiol #DVT prophylaxis - c/w Lovenox VS,Fishbone, I+O VS, Fishbone, I+O Laboratory Tests 10/11/20 05:48 Vital Signs Date Time Temp Pulse Resp B/P (MAP) Pulse Ox O2 Delivery O2 Flow Rate FiO2 10/11/20 06:00 98.0 82 20 131/70 (90) 94 Nasal Cannula 3.0 I&O- Last 24 Hours up to 6 AM 10/11/20 06:00 Intake Total 2560 ml Output Total 3250 ml Balance -690 ml JUDIT ROBLES MD October 11, 2020 10:25
[2020-10-11 14:00] VITALS: BP 113/77
[2020-10-11] MEDS ORDERED: ISOVUE-370 76% 100ML VIAL As Ordered ONE (15:05)
[2020-10-11] MEDS: hydrOXYzine 10MG/5ML SYRUP PO PRN (15:29)
--- NOTE | 2020-10-11 17:33 | REPVR ---
PROCEDURE INFORMATION: Exam: CT Neck With Contrast Exam date and time: 10/11/2020 3:54 PM Age: 54 years old Clinical indication: Pain; Other: Upper airway mucous; Additional info: Evaluate for upper airway mucous TECHNIQUE: Imaging protocol: Computed tomography images of the neck with contrast. Radiation optimization: All CT scans at this facility use at least one of these dose optimization techniques: automated exposure control; mA and/or kV adjustment per patient size (includes targeted exams where dose is matched to clinical indication); or iterative reconstruction. Contrast material: ISOVUE 370; Contrast volume: 75 ml; Contrast route: INTRAVENOUS (IV); COMPARISON: No relevant prior studies available. FINDINGS: Nasopharynx: Unremarkable. Oropharynx: Unremarkable. No significant tonsillar enlargement. Hypopharynx: Unremarkable. Larynx: Unremarkable. Normal epiglottis. Retropharyngeal space: Unremarkable. Submandibular/Parotid glands: Normal. Glands are normal in size. Thyroid: Normal. No enlarged or calcified nodules. Lymph nodes: Unremarkable. No lymphadenopathy. Trachea: Visualized trachea is unremarkable. Lungs: Lung apices demonstrate heterogenicity consistent with emphysema with bilateral apical thickening. Bones/joints: Unremarkable. No acute fracture. Soft tissues: Unremarkable. No significant soft tissue swelling. IMPRESSION: No acute findings. Electronically signed by: Cristhian Velazquez On 10/11/2020 17:33:37 PM
[2020-10-11 20:00] VITALS: O2SAT 95
[2020-10-11] MEDS: CETIRIZINE (ZyrTEC) 10 MG TAB PO SCH (20:09)
[2020-10-11] MEDS: RAMELTEON 8 MG TAB (ROZEREM) PO SCH (20:10)
[2020-10-11 22:00] VITALS: BP 129/59
[2020-10-12] MEDS: IPRATROPIUM 0.5MG/ALBUTEROL 2.5MG INH SOL UD 3ML (DUONEB) NEB SCH ×4 (01:01→19:46)
[2020-10-12] MEDS: hydrOXYzine 10MG/5ML SYRUP PO PRN ×2 (02:19→20:04)
[2020-10-12] MEDS: methylPREDNISolone 125MG 2ML VIAL IV SCH (03:02)
[2020-10-12 06:00] VITALS: BP 133/60
[2020-10-12] MEDS: MOXIFLOXACIN 400 MG TAB PO SCH (06:07)
[2020-10-12 06:35] LABS: BASO # 0.1 10^3/uL (0.0-0.2); BASO % 0.4 % (0.0-1.0); HEMATOCRIT 42.8 % (36.0-47.0); HEMOGLOBIN 13.6 g/dl (12.0-15.5); LYMPH % 6.3 % (24.0-44.0); MEAN CORPUSCULAR HEMOGLOBIN 29.8 pg (27.0-33.0); MEAN CORPUSCULAR HGB CONC 31.8 g/dl (32.0-36.5); MEAN CORPUSCULAR VOLUME 93.9 fl (80.0-96.0); MONO # 0.4 10^3/uL (0.0-0.8); MONO % 2.5 % (2.0-8.0); NEUTROPHILS % 88.4 % (36.0-66.0); PLATELET COUNT, AUTOMATED 248 10^3/uL (150-450); RED BLOOD COUNT 4.56 10^6/uL (4.00-5.40); WHITE BLOOD COUNT 15.8 10^3/uL (4.0-10.0)
[2020-10-12 07:02] LABS: ALBUMIN 3.3 GM/DL (3.2-5.2); ALT/SGPT 99 U/L (12-78); BILIRUBIN,TOTAL 0.2 MG/DL (0.2-1.0); BLOOD UREA NITROGEN 23 MG/DL (7-18); CALCIUM LEVEL 8.6 MG/DL (8.5-10.1); CARBON DIOXIDE LEVEL 29 MEQ/L (21-32); CHLORIDE LEVEL 105 MEQ/L (98-107); CREATININE FOR GFR 0.66 MG/DL (0.55-1.30); GLOMERULAR FILTRATION RATE > 60.0 (>51); GLUCOSE, FASTING 105 MG/DL (70-100); POTASSIUM SERUM 4.6 MEQ/L (3.5-5.1); SODIUM LEVEL 140 MEQ/L (136-145); TOTAL PROTEIN 6.9 GM/DL (6.4-8.2)
[2020-10-12] MEDS: FLUTICASONE HFA 220 MCG 12 GM INHALER (FLOVENT) INH SCH ×2 (07:29→19:46)
[2020-10-12] MEDS: TIOTROPIUM INHALER/CAPSULE (SPIRIVA) INH SCH (07:29)
[2020-10-12 09:00] VITALS: O2SAT 90
[2020-10-12] MEDS: guaiFENesin ER 600 MG TAB PO SCH ×2 (09:30→20:03)
[2020-10-12] MEDS: NYSTATIN 500,000 U/5 ML SUSP UDC PO SCH ×4 (09:31→20:03)
[2020-10-12] MEDS: ASCORBIC ACID 500 MG TAB PO SCH (09:31)
[2020-10-12] MEDS: ENOXAPARIN 40MG/0.4ML SYRINGE (J1650 PER 10MG) SC SCH (09:31)
[2020-10-12] MEDS: LORATADINE 10 MG TAB PO SCH (09:31)
[2020-10-12] MEDS: LEVOTHYROXINE 75MCG TABLET (0.075MG) PO SCH (09:32)
[2020-10-12] MEDS: ursodioL 300 MG CAP PO SCH ×2 (09:32→20:03)
--- NOTE | 2020-10-12 11:11 | IPNPDOC ---
Text Note Date of Service The patient was seen on 10/12/20. NOTE Subjective: Patient seen and examined at bedside. No acute overnight events reported. Patient still complains of shortness of breath with cough and difficulty expectorating sputum. She states it is entirely in her throat. Objective: Vitals (See below) General: Sitting comfortably at edge of bed HEENT: Normocephalic and atraumatic CVS: +S1S2 Lungs: Diffuse wheezing Abdomen: Remains soft without distention or tenderness Extremities: No edema A/P: 54F with PMHx of COPD / Asthma, Hypothyroidism, Primary biliary cirrhosis, Chronic back pain presents to the ER with worsening shortness of breath and cough. Patient was recently started on prednisone on Saturday after she had seen her PCP and Doxycycline was added Saturday after she went to urgent care. Upon arrival to ER, patient was found to be wheezing and was admitted to the hospitalist service for further evaluation and treatment, admitted for COPD exacerbation. #Acute exacerbation of Asthma/COPD - possibly 2/2 viral bronchitis / allergic rhinitis - Reports improvement of breathing, but still reports inability to clear mucus - Currently requiring supplemental oxygen - Physical reveals faint expiratory wheezing - Sputum culture 10/09: Pending - Respiratory panel 10/09: Negative - c/w Solumedrol; will reduce dose - transition to prednisone - c/w inhaled therapy as ordered - c/w Moxifloxacin (Day #4) - c/w Mucinex / Acapella / Incentive spirometry - hypertonic saline nebulization / Chest PT #Oral candidiasis - likely 2/2 inhaled steroid - Patient has been educated on rinsing mouth after use - c/w Nystatin #Allergic rhinitis - c/w Loratadine / Cetirizine #Hypothyroidism - c/w Levothyroxine #Primary biliary cirrhosis - c/w Ursodiol #DVT prophylaxis - c/w Lovenox Dispo: will obtain swallow eval, and likely ENT c/s VS,Fishbone, I+O VS, Fishbone, I+O Laboratory Tests 10/12/20 05:40 Vital Signs Date Time Temp Pulse Resp B/P (MAP) Pulse Ox O2 Delivery O2 Flow Rate FiO2 10/12/20 06:00 98.4 83 18 133/60 (84) 93 Nasal Cannula 3.0 I&O- Last 24 Hours up to 6 AM 10/12/20 06:00 Intake Total 870 ml Output Total 1900 ml Balance -1030 ml JUDIT ROBLES MD October 12, 2020 11:11
[2020-10-12] MEDS: methylPREDNISolone 40MG 1ML VIAL IV SCH (12:29)
[2020-10-12 14:00] VITALS: BP 154/81
[2020-10-12] MEDS: ALBUTEROL SULFATE 2.5 MG/0.5 ML INH NEB SOLN NEB PRN (17:26)
[2020-10-12] MEDS: RAMELTEON 8 MG TAB (ROZEREM) PO SCH (20:03)
[2020-10-12] MEDS: CETIRIZINE (ZyrTEC) 10 MG TAB PO SCH (20:03)
[2020-10-12 22:00] VITALS: BP 122/61
[2020-10-13] MEDS: methylPREDNISolone 40MG 1ML VIAL IV SCH (00:18)
[2020-10-13 00:25] VITALS: O2SAT 93
[2020-10-13] MEDS: IPRATROPIUM 0.5MG/ALBUTEROL 2.5MG INH SOL UD 3ML (DUONEB) NEB SCH ×4 (01:27→19:37)
[2020-10-13] MEDS: MOXIFLOXACIN 400 MG TAB PO SCH (05:32)
[2020-10-13] MEDS: ALBUTEROL SULFATE 2.5 MG/0.5 ML INH NEB SOLN NEB PRN (05:38)
[2020-10-13 06:00] VITALS: BP 157/78
[2020-10-13 06:26] LABS: BASO # 0.1 10^3/uL (0.0-0.2); BASO % 0.4 % (0.0-1.0); HEMATOCRIT 40.5 % (36.0-47.0); HEMOGLOBIN 13.6 g/dl (12.0-15.5); LYMPH # 0.9 10^3/uL (1.5-5.0); LYMPH % 7.2 % (24.0-44.0); MEAN CORPUSCULAR HEMOGLOBIN 30.6 pg (27.0-33.0); MEAN CORPUSCULAR HGB CONC 33.6 g/dl (32.0-36.5); MEAN CORPUSCULAR VOLUME 91.2 fl (80.0-96.0); MONO # 0.5 10^3/uL (0.0-0.8); MONO % 4.2 % (2.0-8.0); NEUTROPHILS # 10.8 10^3/uL (1.5-8.5); NEUTROPHILS % 84.6 % (36.0-66.0); PLATELET COUNT, AUTOMATED 215 10^3/uL (150-450); RED BLOOD COUNT 4.44 10^6/uL (4.00-5.40); WHITE BLOOD COUNT 12.7 10^3/uL (4.0-10.0)
[2020-10-13 06:54] LABS: ALT/SGPT 90 U/L (12-78); BILIRUBIN,TOTAL 0.2 MG/DL (0.2-1.0); BLOOD UREA NITROGEN 25 MG/DL (7-18); CALCIUM LEVEL 8.6 MG/DL (8.5-10.1); CARBON DIOXIDE LEVEL 29 MEQ/L (21-32); CHLORIDE LEVEL 106 MEQ/L (98-107); CREATININE FOR GFR 0.65 MG/DL (0.55-1.30); GLOMERULAR FILTRATION RATE > 60.0 (>51); GLUCOSE, FASTING 104 MG/DL (70-100); SODIUM LEVEL 139 MEQ/L (136-145); TOTAL PROTEIN 6.8 GM/DL (6.4-8.2)
[2020-10-13] MEDS: TIOTROPIUM INHALER/CAPSULE (SPIRIVA) INH SCH (07:13)
[2020-10-13] MEDS: FLUTICASONE HFA 220 MCG 12 GM INHALER (FLOVENT) INH SCH ×2 (07:13→19:37)
[2020-10-13] MEDS: ENOXAPARIN 40MG/0.4ML SYRINGE (J1650 PER 10MG) SC SCH (09:09)
[2020-10-13] MEDS: LEVOTHYROXINE 75MCG TABLET (0.075MG) PO SCH (09:09)
[2020-10-13] MEDS: guaiFENesin ER 600 MG TAB PO SCH ×2 (09:09→21:13)
[2020-10-13] MEDS: LORATADINE 10 MG TAB PO SCH (09:09)
[2020-10-13] MEDS: ASCORBIC ACID 500 MG TAB PO SCH (09:09)
[2020-10-13] MEDS: NYSTATIN 500,000 U/5 ML SUSP UDC PO SCH ×4 (09:09→21:13)
[2020-10-13] MEDS: predniSONE 20 MG TAB PO SCH (09:09)
[2020-10-13] MEDS: ursodioL 300 MG CAP PO SCH ×2 (09:10→21:13)
[2020-10-13] MEDS: hydrOXYzine 10MG/5ML SYRUP PO PRN ×2 (13:12→21:14)
[2020-10-13] MEDS ORDERED: BARIUM SULFATE 700 MG TABLET (E-Z-DISK) As Ordered ONE (13:25)
[2020-10-13] MEDS ORDERED: VARIBAR PUDDING 40% w/v 230ML TUBE As Ordered ONE (13:25)
[2020-10-13] MEDS ORDERED: VARIBAR NECTAR 40% w/v 240ML SUSP BTL As Ordered ONE (13:25)
[2020-10-13] MEDS ORDERED: E-Z-PAQUE 96% w/w SUSP 176GM BTL As Ordered ONE (13:25)
[2020-10-13 14:00] VITALS: BP 164/93
--- NOTE | 2020-10-13 17:46 | IPNPDOC ---
Text Note Date of Service The patient was seen on 10/13/20. NOTE Subjective: Patient seen and examined at bedside. No acute overnight events reported. Patient still complains of shortness of breath with cough and difficulty expectorating sputum. She states it is entirely in her throat. Swallow evaluation yesterday, esophageal sweep/barium swallow planned for today. Objective: Vitals (See below) General: Sitting comfortably at edge of bed, anxious HEENT: Normocephalic and atraumatic CVS: +S1S2 Lungs: Diffuse wheezing Abdomen: Remains soft without distention or tenderness Extremities: No edema A/P: 54F with PMHx of COPD / Asthma, Hypothyroidism, Primary biliary cirrhosis, Chronic back pain presents to the ER with worsening shortness of breath and cough. Patient was recently started on prednisone on Saturday after she had seen her PCP and Doxycycline was added Saturday after she went to urgent care. Upon arrival to ER, patient was found to be wheezing and was admitted to the hospitalist service for further evaluation and treatment, admitted for COPD exacerbation. #Acute exacerbation of Asthma/COPD - possibly 2/2 viral bronchitis / allergic rhinitis - Reports improvement of breathing, but still reports inability to clear mucus - Currently requiring supplemental oxygen - Sputum culture 10/09: Pending - Respiratory panel 10/09: Negative - c/w prednisone - c/w inhaled therapy as ordered - c/w Moxifloxacin (Day #5) - c/w Mucinex / Acapella / Incentive spirometry - hypertonic saline nebulization / Chest PT #Oral candidiasis - likely 2/2 inhaled steroid - Patient has been educated on rinsing mouth after use - c/w Nystatin #Allergic rhinitis - c/w Loratadine / Cetirizine #Hypothyroidism - c/w Levothyroxine #Primary biliary cirrhosis - c/w Ursodiol #DVT prophylaxis - c/w Lovenox Dispo: pending further imaging, possible ENT c/s pending results VS,Fishbone, I+O VS, Fishbone, I+O Laboratory Tests 10/13/20 05:31 Vital Signs Date Time Temp Pulse Resp B/P (MAP) Pulse Ox O2 Delivery O2 Flow Rate FiO2 10/13/20 14:00 97.8 102 17 164/93 (116) 92 Nasal Cannula 2.0 I&O- Last 24 Hours up to 6 AM 10/13/20 06:00 Intake Total 1170 ml Output Total 1175 ml Balance -5 ml JUDIT ROBLES MD October 13, 2020 17:46
[2020-10-13] MEDS: RAMELTEON 8 MG TAB (ROZEREM) PO SCH (21:13)
[2020-10-13] MEDS: ACETAMINOPHEN TAB 650MG DOSE (2X325MG) PO PRN (21:14)
[2020-10-13] MEDS: CETIRIZINE (ZyrTEC) 10 MG TAB PO SCH (21:14)
[2020-10-13 22:00] VITALS: BP 120/62
[2020-10-14] MEDS: IPRATROPIUM 0.5MG/ALBUTEROL 2.5MG INH SOL UD 3ML (DUONEB) NEB SCH ×4 (01:12→19:47)
[2020-10-14 05:28] VITALS: O2SAT 90
[2020-10-14 06:00] VITALS: BP 147/77
[2020-10-14 06:01] LABS: BASO % 0.3 % (0.0-1.0); EOS % 0.1 % (0.0-3.0); HEMATOCRIT 41.3 % (36.0-47.0); HEMOGLOBIN 13.3 g/dl (12.0-15.5); LYMPH # 3.2 10^3/uL (1.5-5.0); LYMPH % 22.4 % (24.0-44.0); MEAN CORPUSCULAR HEMOGLOBIN 29.6 pg (27.0-33.0); MEAN CORPUSCULAR HGB CONC 32.2 g/dl (32.0-36.5); MEAN CORPUSCULAR VOLUME 91.8 fl (80.0-96.0); MONO # 1.3 10^3/uL (0.0-0.8); MONO % 9.2 % (2.0-8.0); NEUTROPHILS # 9.4 10^3/uL (1.5-8.5); NEUTROPHILS % 66.1 % (36.0-66.0); PLATELET COUNT, AUTOMATED 229 10^3/uL (150-450); WHITE BLOOD COUNT 14.2 10^3/uL (4.0-10.0)
[2020-10-14] MEDS: MOXIFLOXACIN 400 MG TAB PO SCH (06:23)
[2020-10-14] MEDS: ACETAMINOPHEN TAB 650MG DOSE (2X325MG) PO PRN ×2 (06:23→20:22)
[2020-10-14 06:24] LABS: ALBUMIN 3.1 GM/DL (3.2-5.2); ALT/SGPT 76 U/L (12-78); BILIRUBIN,TOTAL 0.3 MG/DL (0.2-1.0); BLOOD UREA NITROGEN 23 MG/DL (7-18); CALCIUM LEVEL 8.6 MG/DL (8.5-10.1); CARBON DIOXIDE LEVEL 31 MEQ/L (21-32); CHLORIDE LEVEL 104 MEQ/L (98-107); CREATININE FOR GFR 0.68 MG/DL (0.55-1.30); GLOMERULAR FILTRATION RATE > 60.0 (>51); GLUCOSE, FASTING 72 MG/DL (70-100); POTASSIUM SERUM 3.9 MEQ/L (3.5-5.1); SODIUM LEVEL 139 MEQ/L (136-145); TOTAL PROTEIN 6.6 GM/DL (6.4-8.2)
[2020-10-14] MEDS: FLUTICASONE HFA 220 MCG 12 GM INHALER (FLOVENT) INH SCH ×2 (07:06→19:47)
[2020-10-14] MEDS: TIOTROPIUM INHALER/CAPSULE (SPIRIVA) INH SCH (07:06)
[2020-10-14] MEDS: predniSONE 20 MG TAB PO SCH (08:19)
[2020-10-14] MEDS: NYSTATIN 500,000 U/5 ML SUSP UDC PO SCH ×4 (08:19→20:21)
[2020-10-14] MEDS: ASCORBIC ACID 500 MG TAB PO SCH (08:19)
[2020-10-14] MEDS: LORATADINE 10 MG TAB PO SCH (08:19)
[2020-10-14] MEDS: LEVOTHYROXINE 75MCG TABLET (0.075MG) PO SCH (08:19)
[2020-10-14] MEDS: ursodioL 300 MG CAP PO SCH ×2 (08:19→20:21)
[2020-10-14] MEDS: guaiFENesin ER 600 MG TAB PO SCH ×2 (08:20→20:21)
[2020-10-14] MEDS: ENOXAPARIN 40MG/0.4ML SYRINGE (J1650 PER 10MG) SC SCH (08:20)
--- NOTE | 2020-10-14 10:12 | IPNPDOC ---
Text Note Date of Service The patient was seen on 10/14/20. NOTE Subjective: Patient seen and examined at bedside. No acute overnight events reported. Patient still complains of shortness of breath with cough and difficulty expectorating sputum. She states it is entirely in her throat. Results of esophageal x-ray still pending. Objective: Vitals (See below) General: Sitting comfortably at edge of bed, anxious HEENT: Normocephalic and atraumatic CVS: +S1S2 Lungs: Diffuse wheezing Abdomen: soft, NT, +BS Extremities: No edema A/P: 54F with PMHx of COPD / Asthma, Hypothyroidism, Primary biliary cirrhosis, Chronic back pain presents to the ER with worsening shortness of breath and cough. Patient was recently started on prednisone on Saturday after she had seen her PCP and Doxycycline was added Saturday after she went to urgent care. Upon arrival to ER, patient was found to be wheezing and was admitted to the hospitalist service for further evaluation and treatment, admitted for COPD exacerbation. #Acute exacerbation of Asthma/COPD - possibly 2/2 viral bronchitis / allergic rhinitis - Reports improvement of breathing, but still reports inability to clear mucus - Currently requiring supplemental oxygen - Sputum culture 10/09: Pending - Respiratory panel 10/09: Negative - c/w prednisone - c/w inhaled therapy as ordered - c/w Moxifloxacin (Day #6) - c/w Mucinex / Acapella / Incentive spirometry - hypertonic saline nebulization / Chest PT #dysphagia/SOB - esophageal x-ray pending results - discussed with ENT - plan for further scoping today - assistance greatly appreciated #Oral candidiasis - likely 2/2 inhaled steroid - Patient has been educated on rinsing mouth after use - c/w Nystatin #Allergic rhinitis - c/w Loratadine / Cetirizine #Hypothyroidism - c/w Levothyroxine #Primary biliary cirrhosis - c/w Ursodiol #DVT prophylaxis - c/w Lovenox Dispo: pending results of x-ray swallow, pending further evaluation by ENT Brittney LUNA, I+O Brittney LUNA, I+O Laboratory Tests 10/14/20 04:56 Vital Signs Date Time Temp Pulse Resp B/P (MAP) Pulse Ox O2 Delivery O2 Flow Rate FiO2 10/14/20 06:00 97.1 82 20 147/77 (100) 91 Nasal Cannula 2.0 I&O- Last 24 Hours up to 6 AM 10/14/20 05:59 Intake Total 3330 ml Output Total 3275 ml Balance 55 ml JUDIT ROBLES MD October 14, 2020 10:12
[2020-10-14] MEDS: hydrOXYzine 10MG/5ML SYRUP PO PRN ×2 (11:02→20:22)
--- NOTE | 2020-10-14 11:46 | IPNPDOC ---
Text Note Date of Service The patient was seen on 10/14/20. NOTE 54yo with COPD feels like she has something stuck in her throat that triggers a coughing jag and then severre dyspnea. No post nasal discharge No throat pain No change in voice HX of smoking PE Voice is nomal there is no stridor or wheezing NARES septal deviation but no mucopus noted on endoxcopy OC/Op no edemat Flexible laryngoscopy shows good vocal cord function no paradoxical motion No edema or masses obstructing airway NECK no masses IMP no physical obstruciton of the upper airway. Some functional issues made worse by dry throat Increase waterr intake Mucolytics Saline nasal spray. Maybe powdered inhaler for lungs is creating some mischeif No airway intervention needed VS,Fishbone, I+O VS, Fishbone, I+O Laboratory Tests 10/14/20 04:56 Vital Signs Date Time Temp Pulse Resp B/P (MAP) Pulse Ox O2 Delivery O2 Flow Rate FiO2 10/14/20 10:00 91 Nasal Cannula 1.0 10/14/20 06:00 97.1 82 20 147/77 (100) I&O- Last 24 Hours up to 6 AM 10/14/20 05:59 Intake Total 3330 ml Output Total 3275 ml Balance 55 ml OLEG ARIAS MD October 14, 2020 11:46
[2020-10-14 14:00] VITALS: BP 118/70
--- NOTE | 2020-10-14 17:28 | REP ---
INDICATION: swallow eval. COMPARISON: None. TECHNIQUE: The procedure was performed by Zita Lambert [facility], under the direct supervision of Dr. Dempsey. The procedure was performed with Celia Johnson from speech pathology present. 5 ml aliquots of thin, pudding, mixed fruit, soft food, and hard food consistency barium was administered. FINDINGS: Flash penetration was visualized with thin consistency barium. The detailed report of this examination will be provided by speech pathology. IMPRESSION: Flash penetration with thin consistency barium, a detailed report will be provided by speech pathology. 1.4 minutes of fluoroscopy time was utilized for this procedure. Some fluoroscopic images are performed with last image hold technology. These images require no additional radiation <Electronically signed by Zita Lambert > 10/13/20 1612 <Electronically signed by Jb Dempsey > 10/14/20 1400
[2020-10-14] MEDS: RAMELTEON 8 MG TAB (ROZEREM) PO SCH (20:21)
[2020-10-14] MEDS: CETIRIZINE (ZyrTEC) 10 MG TAB PO SCH (20:21)
[2020-10-14 22:00] VITALS: BP 117/75
[2020-10-15] VITALS (8 sets, daily range): BP systolic 118–146; BP diastolic 59–69; O2SAT 89–92
[2020-10-15] MEDS: IPRATROPIUM 0.5MG/ALBUTEROL 2.5MG INH SOL UD 3ML (DUONEB) NEB SCH ×4 (01:11→19:20)
[2020-10-15] MEDS: ACETAMINOPHEN TAB 650MG DOSE (2X325MG) PO PRN ×3 (05:34→20:22)
[2020-10-15] MEDS: MOXIFLOXACIN 400 MG TAB PO SCH (05:34)
[2020-10-15 06:22] LABS: BASO % 0.3 % (0.0-1.0); EOS # 0.1 10^3/uL (0.0-0.5); EOS % 0.9 % (0.0-3.0); HEMATOCRIT 39.4 % (36.0-47.0); HEMOGLOBIN 12.9 g/dl (12.0-15.5); LYMPH # 3.2 10^3/uL (1.5-5.0); LYMPH % 23.9 % (24.0-44.0); MEAN CORPUSCULAR HEMOGLOBIN 29.9 pg (27.0-33.0); MEAN CORPUSCULAR HGB CONC 32.7 g/dl (32.0-36.5); MEAN CORPUSCULAR VOLUME 91.4 fl (80.0-96.0); MONO # 1.2 10^3/uL (0.0-0.8); NEUTROPHILS # 8.5 10^3/uL (1.5-8.5); NEUTROPHILS % 64.2 % (36.0-66.0); PLATELET COUNT, AUTOMATED 201 10^3/uL (150-450); RED BLOOD COUNT 4.31 10^6/uL (4.00-5.40); WHITE BLOOD COUNT 13.3 10^3/uL (4.0-10.0)
[2020-10-15 06:45] LABS: ALT/SGPT 74 U/L (12-78); BILIRUBIN,TOTAL 0.3 MG/DL (0.2-1.0); BLOOD UREA NITROGEN 24 MG/DL (7-18); CALCIUM LEVEL 8.4 MG/DL (8.5-10.1); CARBON DIOXIDE LEVEL 31 MEQ/L (21-32); CHLORIDE LEVEL 106 MEQ/L (98-107); CREATININE FOR GFR 0.66 MG/DL (0.55-1.30); GLOMERULAR FILTRATION RATE > 60.0 (>51); GLUCOSE, FASTING 67 MG/DL (70-100); POTASSIUM SERUM 3.7 MEQ/L (3.5-5.1); SODIUM LEVEL 141 MEQ/L (136-145)
[2020-10-15] MEDS: TIOTROPIUM INHALER/CAPSULE (SPIRIVA) INH SCH (07:10)
[2020-10-15] MEDS: FLUTICASONE HFA 220 MCG 12 GM INHALER (FLOVENT) INH SCH ×2 (07:10→19:21)
[2020-10-15] MEDS: ursodioL 300 MG CAP PO SCH ×2 (09:22→20:21)
[2020-10-15] MEDS: ENOXAPARIN 40MG/0.4ML SYRINGE (J1650 PER 10MG) SC SCH (09:22)
[2020-10-15] MEDS: guaiFENesin ER 600 MG TAB PO SCH ×2 (09:22→20:22)
[2020-10-15] MEDS: ASCORBIC ACID 500 MG TAB PO SCH (09:22)
[2020-10-15] MEDS: NYSTATIN 500,000 U/5 ML SUSP UDC PO SCH ×4 (09:22→20:22)
[2020-10-15] MEDS: LEVOTHYROXINE 75MCG TABLET (0.075MG) PO SCH (09:22)
[2020-10-15] MEDS: predniSONE 20 MG TAB PO SCH (09:22)
[2020-10-15] MEDS: LORATADINE 10 MG TAB PO SCH (09:23)
[2020-10-15] MEDS: hydrOXYzine 10MG/5ML SYRUP PO PRN ×2 (09:30→20:22)
--- NOTE | 2020-10-15 11:09 | IPNPDOC ---
Text Note Date of Service The patient was seen on 10/15/20. NOTE Subjective: Patient seen and examined at bedside. No acute overnight events reported. Patient still complains of shortness of breath with cough and difficulty expectorating sputum. Objective: Vitals (See below) General: Sitting comfortably at edge of bed, anxious HEENT: Normocephalic and atraumatic CVS: +S1S2 Lungs: scattered expiratory wheezing Abdomen: soft, NT, +BS Extremities: No edema A/P: 54F with PMHx of COPD / Asthma, Hypothyroidism, Primary biliary cirrhosis, C hronic back pain presents to the ER with worsening shortness of breath and cough. Patient was recently started on prednisone on Saturday after she had seen her PCP and Doxycycline was added Saturday after she went to urgent care. Upon arrival to ER, patient was found to be wheezing and was admitted to the hospitalist service for further evaluation and treatment, admitted for COPD exacerbation. #Acute exacerbation of Asthma/COPD - possibly 2/2 viral bronchitis / allergic rhinitis - Reports improvement of breathing, but still reports inability to clear mucus - Currently requiring supplemental oxygen - weaned to 0.5L - Sputum culture 10/09 - negative - Respiratory panel 10/09: Negative - c/w prednisone - c/w inhaled therapy as ordered - c/w Moxifloxacin (Day #7) - c/w Mucinex / Acapella / Incentive spirometry - hypertonic saline nebulization / Chest PT #dysphagia/SOB - esophageal x-ray pending results - discussed with ENT - s/p scoping, no acute findings - assistance appreciated #Oral candidiasis - likely 2/2 inhaled steroid - Patient has been educated on rinsing mouth after use - c/w Nystatin #Allergic rhinitis - c/w Loratadine / Cetirizine #Hypothyroidism - c/w Levothyroxine #Primary biliary cirrhosis - c/w Ursodiol #DVT prophylaxis - c/w Lovenox Dispo: anticipating discharge in 24-48 hours, may need home O2; VS,Fishbone, I+O VS, Fishbone, I+O Laboratory Tests 10/15/20 05:41 Vital Signs Date Time Temp Pulse Resp B/P (MAP) Pulse Ox O2 Delivery O2 Flow Rate FiO2 10/15/20 06:00 97.3 75 8 122/59 (80) 95 Nasal Cannula 0.5 I&O- Last 24 Hours up to 6 AM 5/15/21 06:00 Intake Total 970 ml Output Total 1500 ml Balance -530 ml JUDIT ROBLES MD October 15, 2020 11:09
[2020-10-15] MEDS ORDERED: CHLORASEPTIC SPRAY MT PRN (15:00)
[2020-10-15] MEDS: CETIRIZINE (ZyrTEC) 10 MG TAB PO SCH (20:22)
[2020-10-15] MEDS: RAMELTEON 8 MG TAB (ROZEREM) PO SCH (20:22)
[2020-10-16] VITALS (9 sets, daily range): BP systolic 126–159; BP diastolic 58–73; O2SAT 86–92
[2020-10-16] MEDS: IPRATROPIUM 0.5MG/ALBUTEROL 2.5MG INH SOL UD 3ML (DUONEB) NEB SCH ×4 (01:18→20:47)
[2020-10-16 06:27] LABS: BASO % 0.3 % (0.0-1.0); EOS # 0.2 10^3/uL (0.0-0.5); EOS % 1.5 % (0.0-3.0); HEMATOCRIT 38.2 % (36.0-47.0); HEMOGLOBIN 12.5 g/dl (12.0-15.5); LYMPH # 3.1 10^3/uL (1.5-5.0); LYMPH % 23.8 % (24.0-44.0); MEAN CORPUSCULAR HEMOGLOBIN 29.8 pg (27.0-33.0); MEAN CORPUSCULAR HGB CONC 32.7 g/dl (32.0-36.5); MONO % 7.4 % (2.0-8.0); NEUTROPHILS # 8.6 10^3/uL (1.5-8.5); NEUTROPHILS % 65.3 % (36.0-66.0); PLATELET COUNT, AUTOMATED 168 10^3/uL (150-450); WHITE BLOOD COUNT 13.2 10^3/uL (4.0-10.0)
[2020-10-16 06:54] LABS: ALBUMIN 2.7 GM/DL (3.2-5.2); ALT/SGPT 78 U/L (12-78); BILIRUBIN,TOTAL 0.3 MG/DL (0.2-1.0); BLOOD UREA NITROGEN 21 MG/DL (7-18); CALCIUM LEVEL 8.9 MG/DL (8.5-10.1); CARBON DIOXIDE LEVEL 28 MEQ/L (21-32); CHLORIDE LEVEL 107 MEQ/L (98-107); GLOMERULAR FILTRATION RATE > 60.0 (>51); GLUCOSE, FASTING 91 MG/DL (70-100); POTASSIUM SERUM 3.2 MEQ/L (3.5-5.1); SODIUM LEVEL 142 MEQ/L (136-145); TOTAL PROTEIN 5.6 GM/DL (6.4-8.2)
[2020-10-16] MEDS: TIOTROPIUM INHALER/CAPSULE (SPIRIVA) INH SCH (07:05)
[2020-10-16] MEDS: FLUTICASONE HFA 220 MCG 12 GM INHALER (FLOVENT) INH SCH ×2 (07:06→20:47)
--- NOTE | 2020-10-16 09:11 | IPNPDOC ---
Text Note Date of Service The patient was seen on 10/16/20. NOTE Subjective: Patient seen and examined at bedside. No acute overnight events reported. Patient slowly feeling better. Still notes some sensation in her throat, but improving. Objective: Vitals (See below) General: Sitting comfortably in chair, anxious HEENT: Normocephalic and atraumatic, nasal cannula wrapped around her chin CVS: +S1S2 Lungs: scattered expiratory wheezing Abdomen: soft, NT, +BS Extremities: No edema A/P: 54F with PMHx of COPD / Asthma, Hypothyroidism, Primary biliary cirrhosis, Chronic back pain presents to the ER with worsening shortness of breath and cough. Patient was recently started on prednisone on Saturday after she had seen her PCP and Doxycycline was added Saturday after she went to urgent care. Upon arrival to ER, patient was found to be wheezing and was admitted to the hospitalist service for further evaluation and treatment, admitted for COPD exacerbation. #Acute exacerbation of Asthma/COPD - possibly 2/2 viral bronchitis / allergic r hinitis - Reports improvement of breathing, but still reports inability to clear mucus - saturating well on room air at rest - Sputum culture 10/09 - negative - Respiratory panel 10/09: Negative - c/w prednisone - c/w inhaled therapy as ordered - c/w Moxifloxacin (Day #8) - c/w Mucinex / Acapella / Incentive spirometry - hypertonic saline nebulization / Chest PT #dysphagia/SOB - esophageal x-ray pending results - discussed with ENT - s/p scoping, no acute findings - assistance appreciated #Oral candidiasis - likely 2/2 inhaled steroid - Patient has been educated on rinsing mouth after use - c/w Nystatin #Allergic rhinitis - c/w Loratadine / Cetirizine #Hypothyroidism - c/w Levothyroxine #Primary biliary cirrhosis - c/w Ursodiol #DVT prophylaxis - c/w Lovenox Dispo: anticipating discharge in 24hours, may need home O2; VS,Fishbone, I+O VS, Fishbone, I+O Laboratory Tests 10/16/20 06:05 Vital Signs Date Time Temp Pulse Resp B/P (MAP) Pulse Ox O2 Delivery O2 Flow Rate FiO2 10/16/20 06:00 98.4 84 18 159/73 (101) 90 Room Air 10/15/20 22:43 0.5 I&O- Last 24 Hours up to 6 AM 10/16/20 06:00 Intake Total 4540 ml Output Total 2475 ml Balance 2065 ml JUDIT ROBLES MD October 16, 2020 09:11
[2020-10-16] MEDS ORDERED: POTASSIUM CHLORIDE 10% LIQ 20 MEQ/15 ML UDC PO ONE (09:15)
[2020-10-16] MEDS: LORATADINE 10 MG TAB PO SCH (09:24)
[2020-10-16] MEDS: predniSONE 20 MG TAB PO SCH (09:24)
[2020-10-16] MEDS: LEVOTHYROXINE 75MCG TABLET (0.075MG) PO SCH (09:24)
[2020-10-16] MEDS: ASCORBIC ACID 500 MG TAB PO SCH (09:24)
[2020-10-16] MEDS: guaiFENesin ER 600 MG TAB PO SCH ×2 (09:24→20:27)
[2020-10-16] MEDS: ursodioL 300 MG CAP PO SCH ×2 (09:24→20:29)
[2020-10-16] MEDS: CHLORASEPTIC SPRAY MT PRN (09:25)
[2020-10-16] MEDS: ENOXAPARIN 40MG/0.4ML SYRINGE (J1650 PER 10MG) SC SCH (09:25)
[2020-10-16] MEDS: RAMELTEON 8 MG TAB (ROZEREM) PO SCH (20:29)
[2020-10-16] MEDS: ACETAMINOPHEN TAB 650MG DOSE (2X325MG) PO PRN (20:29)
[2020-10-16] MEDS: CETIRIZINE (ZyrTEC) 10 MG TAB PO SCH (20:30)
[2020-10-16] MEDS: hydrOXYzine 10MG/5ML SYRUP PO PRN (20:31)
[2020-10-17 01:08] VITALS: O2SAT 91
[2020-10-17] MEDS: IPRATROPIUM 0.5MG/ALBUTEROL 2.5MG INH SOL UD 3ML (DUONEB) NEB SCH ×3 (01:40→13:32)
[2020-10-17 06:00] VITALS: BP 133/78
[2020-10-17] MEDS ORDERED: POTASSIUM CHLORIDE 10% LIQ 20 MEQ/15 ML UDC PO ONE (07:10)
[2020-10-17] MEDS: FLUTICASONE HFA 220 MCG 12 GM INHALER (FLOVENT) INH SCH (07:16)
[2020-10-17] MEDS: TIOTROPIUM INHALER/CAPSULE (SPIRIVA) INH SCH (07:16)
[2020-10-17] MEDS: hydrOXYzine 10MG/5ML SYRUP PO PRN (09:27)
[2020-10-17] MEDS: CHLORASEPTIC SPRAY MT PRN (09:27)
[2020-10-17] MEDS: ACETAMINOPHEN TAB 650MG DOSE (2X325MG) PO PRN (09:27)
[2020-10-17] MEDS: ASCORBIC ACID 500 MG TAB PO SCH (09:28)
[2020-10-17] MEDS: guaiFENesin ER 600 MG TAB PO SCH (09:28)
[2020-10-17] MEDS: ENOXAPARIN 40MG/0.4ML SYRINGE (J1650 PER 10MG) SC SCH (09:28)
[2020-10-17] MEDS: predniSONE 20 MG TAB PO SCH (09:28)
[2020-10-17] MEDS: LEVOTHYROXINE 75MCG TABLET (0.075MG) PO SCH (09:28)
[2020-10-17] MEDS: ursodioL 300 MG CAP PO SCH (09:28)
[2020-10-17] MEDS: LORATADINE 10 MG TAB PO SCH (09:28)
[2020-10-17] MEDS ORDERED: HYDR10EL PO (09:53)
[2020-10-17] MEDS ORDERED: MUCI600T31 PO (09:53)
[2020-10-17] MEDS ORDERED: PRED10TA2 PO (09:53)
[2020-10-17] MEDS ORDERED: CHLORSP MT (09:53)
--- NOTE | 2020-10-17 11:23 | REP ---
INDICATION: sob COMPARISON: 10/09/2020. TECHNIQUE: PA/Lateral FINDINGS: Lungs: Clear, no infiltrate. Heart: Normal in size. Mediastinum: Mediastinal silhouette unremarkable. Pleural angles: Unremarkable.. Bones and soft tissues: Unremarkable. IMPRESSION: No acute pulmonary disease. <Electronically signed by Jb Dempsey > 10/17/20 1111
--- NOTE | 2020-10-17 15:39 | DS.PDOC ---
Discharge Summary General Date of Admission October 09, 2020 at 05:14 Date of Discharge 10/17/20 Discharge Summary PROCEDURES PERFORMED DURING STAY: laryngoscopy, barium swallow DISCHARGE DIAGNOSES: # Asthma/COPD with acute exacerbation # Oral candidiasis #Allergic rhinitis #Hypothyroidism #Primary biliary cirrhosis COMPLICATIONS/CHIEF COMPLAINT: Copd Exacerbation. HISTORY OF PRESENT ILLNESS: 54 year old female presented to the ED today due to worsening cough and shortness of breath. She states she started feeling unwell about 10 days prior, with worsening productive cough. She noticed a clear, thick sputum with difficulty expectorating. She has also had some shortness of breath which started when she was doing her typical work outs (running). She stated she feels she cannot breath due to all the coughing. She denies fevers or chills at home. She stated she went to her PCP on Saturday and was prescribed prednisone to take. She stated she had no improvement from this and went to urgent care on Saturday where she was prescribed doxycycline. She states she picked this up but felt she needed to be seen in the ED due to the severity of her symptoms. Additionally, she was diagnosed at urgent care with oral thrush. She attribute this to using a steroid inhaler and never being told to rinse her mouth af terward. She has some throat soreness. No difficulty or pain with swallowing. She stated she has had thrush in the past as well. HOSPITAL COURSE: 54F with PMHx of COPD / Asthma, Hypothyroidism, Primary biliary cirrhosis, Chronic back pain presents to the ER with worsening shortness of breath and cough. Patient was recently started on prednisone on Saturday after she had seen her PCP and Doxycycline was added Saturday after she went to urgent care. Upon arrival to ER, patient was found to be wheezing and was admitted to the hospitalist service for further evaluation and treatment, admitted for COPD exacerbation. #Acute exacerbation of Asthma/COPD - possibly 2/2 viral bronchitis / allergic rhinitis - Sputum culture 10/09 - negative - Respiratory panel 10/09: Negative - completed 10 day Avelox - c/w Mucinex / Acapella / Incentive spirometry - hypertonic saline nebulization / Chest PT #dysphagia/SOB - esophageal x-ray pending results - discussed with ENT - s/p scoping, no acute findings - assistance appreciated #Oral candidiasis - likely 2/2 inhaled steroid - Patient has been educated on rinsing mouth after use #Allergic rhinitis - c/w Loratadine / Cetirizine #Hypothyroidism - c/w Levothyroxine #Primary biliary cirrhosis - c/w Ursodiol DISCHARGE MEDICATIONS: Please see below. ALLERGIES: Please see below. PHYSICAL EXAMINATION ON DISCHARGE: VITAL SIGNS: Please see below. General: Sitting comfortably in chair, anxious HEENT: Normocephalic and atraumatic, nasal cannula wrapped around her chin CVS: +S1S2 Lungs: scattered expiratory wheezing Abdomen: soft, NT, +BS Extremities: No edema LABORATORY DATA: Please see below. ACTIVITY: [As tolerated]. DISPOSITION: Discharge home DISCHARGE INSTRUCTIONS: 1. PCP in 3-5 days DISCHARGE CONDITION: [Stable]. TIME SPENT ON DISCHARGE: 35 minutes. Vital Signs/I&Os Vital Signs Date Time Temp Pulse Resp B/P (MAP) Pulse Ox O2 Delivery O2 Flow Rate FiO2 10/17/20 11:49 90 Nasal Cannula 1.0 10/17/20 06:00 97.9 69 18 133/78 (96) I&O- Last 24 Hours up to 6 AM 10/17/20 06:00 Intake Total 2100 ml Output Total 3350 ml Balance -1250 ml Microbiology Microbiology 10/09/20 Gram Stain - Final, Complete 10/09/20 Sputum Culture - Final, Complete 10/09/20 Respiratory Virus Panel (PCR) (FARHAT) - Final, Complete Discharge Medications Scheduled Ascorbic Acid (Vitamin C) 500 Mg Capsule, 500 MG PO DAILY, (Reported) Benzonatate (Benzonatate) 100 Mg Capsule, 100 MG PO TID, (Reported) Cholecalciferol (Vitamin D3) (Vitamin D3) 10 Mcg Capsule, 50 MCG PO DAILY, (Reported) Fluticasone Propion/Salmeterol (Fluticasone-Salmeterol 232-14) 1 Each Aer.pow.ba, 1 PUFF INH BID, (Reported) Guaifenesin (Mucinex) 600 Mg Tab.er.12h, 1,200 MG PO BID Levocetirizine Dihydrochloride (Levocetirizine Dihydrochloride) 5 Mg Tablet, 5 MG PO QHS, (Reported) Levothyroxine Sodium (Levothyroxine Sodium) 75 Mcg Tablet, 75 MCG PO DAILY, (Reported) Loratadine (Loratadine) 10 Mg Tablet, 10 MG PO DAILY, (Reported) Mv-Mn/Folic/Lutein/Herbal 293 (Alive Women's 50 Plus Vitamins) 120 Mcg-150 Mcg- 37.5 Mg Tab.chew, 1 EACH PO DAILY, (Reported) Nystatin (Nystatin Oral Susp) 100,000 Unit/1 Ml Oral.susp, 5 ML PO QID, (Reported) Prednisone (Prednisone) 10 Mg Tablet, 10 MG PO TAPER Take 4 tabs daily x 3 days, then 3 tabs daily x 3 days, then 2 tabs daily x 3 days, then 1 tab daily x 3 days and stop Umeclidinium Ophiem (Incruse Ellipta) 62.5 Mcg Blst.w.dev, 1 PUFF INH DAILY, (Reported) Ursodiol (Ursodiol) 300 Mg Capsule, 300 MG PO BID, (Reported) Scheduled PRN Albuterol Sulfate (Albuterol Sulfate Hfa) 8.5 Gm Hfa.aer.ad, 2 PUFFS INH PRN PRN for BRONCHOSPASM, (Reported) Hydroxyzine HCl (Hydroxyzine HCl) 10 Mg/5 Ml Solution, 10 MG PO Q8HP PRN for anxiety Phenol (Sore Throat [place]) 177 Ml [place], 1 SPRAY MT Q4HP PRN for SORE THROAT Allergies Coded Allergies: Cephalosporins (Verified Allergy, Mild, HIVES, 10/09/20) cyclobenzaprine (Verified Allergy, Mild, HIVES, 10/09/20) morphine (Verified Allergy, Mild, HIVES, 10/09/20) codeine (Verified Adverse Reaction, Mild, GI UPSET, 10/09/20) hydrocodone (Verified Adverse Reaction, Unknown, GI UPSET, 10/09/20) JUDIT ROBLES MD October 17, 2020 15:39
== END 2020-10-17 17:45 | disposition home or self-care (01) | DRG 140 ==
LOC: M ED 01:12 → M ED INP 05:14 → ENRESERV 06:10 → M MSPAV 08:51
PROVIDERS: ADMIT Family Medicine; ATTEND Internal Medicine
DX: J44.1 Chronic obstructive pulmonary disease with (acute) exacerbation (principal); J96.01 Acute respiratory failure with hypoxia; B37.0 Candidal stomatitis; C34.90 Malignant neoplasm of unspecified part of unspecified bronchus or lung; K74.3 Primary biliary cirrhosis; J45.901 Unspecified asthma with (acute) exacerbation; E03.9 Hypothyroidism, unspecified; Z79.899 Other long term (current) drug therapy; Z88.5 Allergy status to narcotic agent; Z88.8 Allergy status to other drugs, medicaments and biological substances; Z87.891 Personal history of nicotine dependence

== ENCOUNTER → 2020-10-24 | Outpatient (REF) | payer OTHER ==
[~2020-10-24] MED LIST: ALBU8.5H INH; BENZ-18 PO; CHLORSP MT; D3400CAP PO; DOXY100C37 PO; FLUT1INH3 INH; HYDR10EL PO; INCR1INH INH; LEVO75TA4 PO; LEVOTAB10 PO; LORA-674 PO; MUCI600T31 PO; MV M PO; NYST50SS PO; PRED10TA2 PO; PRED20TA PO; URSO300C3 PO; VITA500C24 PO
== END ==
LOC: M SFHCCLAY 10:49
PROVIDERS: ATTEND Nurse Practitioner Family
DX: J44.1 Chronic obstructive pulmonary disease with (acute) exacerbation (principal)

== ENCOUNTER → 2021-01-24 | Outpatient (REF) | payer OTHER ==
[~2021-01-24] MED LIST changes: -DOXY100C37 PO; +DOXY1CAP62 PO
== END ==
LOC: M SFHCCLAY 11:13
PROVIDERS: ATTEND Physician Assistant
DX: R05 Cough (principal); Z20.822 Contact with and (suspected) exposure to COVID-19

== ENCOUNTER → 2021-08-23 | Outpatient (REF) | payer OTHER ==
[~2021-08-23] MED LIST changes: +DOXY-443 PO; -DOXY1CAP62 PO
[2021-08-24 11:48] LABS: BASO # 0.1 10^3/uL (0.0-0.2); BASO % 1.3 % (0.0-1.0); EOS # 0.4 10^3/uL (0.0-0.5); EOS % 5.9 % (0.0-3.0); HEMATOCRIT 41.1 % (36.0-47.0); HEMOGLOBIN 13.5 g/dl (12.0-15.5); LYMPH # 2.7 10^3/uL (1.5-5.0); MEAN CORPUSCULAR HEMOGLOBIN 30.1 pg (27.0-33.0); MEAN CORPUSCULAR HGB CONC 32.8 g/dl (32.0-36.5); MEAN CORPUSCULAR VOLUME 91.7 fl (80.0-96.0); MONO # 0.6 10^3/uL (0.0-0.8); MONO % 7.8 % (2.0-8.0); NEUTROPHILS # 3.3 10^3/uL (1.5-8.5); NEUTROPHILS % 46.7 % (36.0-66.0); PLATELET COUNT, AUTOMATED 196 10^3/uL (150-450); RED BLOOD COUNT 4.48 10^6/uL (4.00-5.40); WHITE BLOOD COUNT 7.1 10^3/uL (4.0-10.0)
[2021-08-24 12:06] LABS: ALBUMIN 3.7 GM/DL (3.2-5.2); ALT/SGPT 46 U/L (12-78); BILIRUBIN,TOTAL 0.2 MG/DL (0.2-1.0); BLOOD UREA NITROGEN 12 MG/DL (7-18); CALCIUM LEVEL 9.1 MG/DL (8.5-10.1); CARBON DIOXIDE LEVEL 31 MEQ/L (21-32); CHLORIDE LEVEL 106 MEQ/L (98-107); CHOLESTEROL LEVEL 193 MG/DL (<200); CHOLESTEROL RISK RATIO 3.385 (<5); CREATININE FOR GFR 0.73 MG/DL (0.55-1.30); FREE T4 1.17 NG/DL (0.76-1.46); GLOMERULAR FILTRATION RATE > 60.0 (>51); GLUCOSE, FASTING 76 MG/DL (70-100); HDL CHOLESTEROL 57 MG/DL (>40); LDL CHOLESTEROL 111 MG/DL (<100); NON-HDL-C 136 MG/DL; POTASSIUM SERUM 4.5 MEQ/L (3.5-5.1); SODIUM LEVEL 140 MEQ/L (136-145); TOTAL PROTEIN 7.1 GM/DL (6.4-8.2); TRIGLYCERIDES LEVEL 126 MG/DL (<150)
[2021-08-24 12:19] LABS: HEMOGLOBIN A1c 5.7 %
== END ==
LOC: M SFHCCLAY 14:54
PROVIDERS: ATTEND Nurse Practitioner Family
DX: M50.30 Other cervical disc degeneration, unspecified cervical region (principal); J44.9 Chronic obstructive pulmonary disease, unspecified; K74.3 Primary biliary cirrhosis; R20.0 Anesthesia of skin; E03.9 Hypothyroidism, unspecified; F17.210 Nicotine dependence, cigarettes, uncomplicated; Z13.1 Encounter for screening for diabetes mellitus

== ENCOUNTER 2021-11-05 22:49 | Inpatient (IN) | payer OTHER ==
[~2021-11-05] VITALS: Ht 152.4 cm; Wt 65.6 kg
[2021-11-05] MEDS ORDERED: DOXY-443 PO (23:12)
[2021-11-05] MEDS ORDERED: IPRATROPIUM 0.5MG/ALBUTEROL 2.5MG INH SOL UD 3ML (DUONEB) NEB ONE (23:50)
[2021-11-05] MEDS ORDERED: ALBUTEROL SULFATE 2.5 MG/0.5 ML INH NEB SOLN NEB ONE (23:50)
[2021-11-06 00:36] LABS: BASO % 0.1 % (0.0-1.0); HEMATOCRIT 42.4 % (36.0-47.0); HEMOGLOBIN 14.1 g/dl (12.0-15.5); LYMPH # 0.8 10^3/uL (1.5-5.0); LYMPH % 7.1 % (24.0-44.0); MEAN CORPUSCULAR HEMOGLOBIN 30.5 pg (27.0-33.0); MEAN CORPUSCULAR HGB CONC 33.3 g/dl (32.0-36.5); MEAN CORPUSCULAR VOLUME 91.8 fl (80.0-96.0); MONO # 0.3 10^3/uL (0.0-0.8); MONO % 2.8 % (2.0-8.0); NEUTROPHILS # 9.7 10^3/uL (1.5-8.5); NEUTROPHILS % 89.4 % (36.0-66.0); PLATELET COUNT, AUTOMATED 296 10^3/uL (150-450); RED BLOOD COUNT 4.62 10^6/uL (4.00-5.40); WHITE BLOOD COUNT 10.9 10^3/uL (4.0-10.0)
[2021-11-06 01:53] LABS: BLOOD UREA NITROGEN 19 MG/DL (7-18); CALCIUM LEVEL 9.7 MG/DL (8.5-10.1); CARBON DIOXIDE LEVEL 30 MEQ/L (21-32); GLOMERULAR FILTRATION RATE > 60.0 (>51); GLUCOSE, FASTING 128 MG/DL (70-100); POTASSIUM SERUM 4.3 MEQ/L (3.5-5.1); SODIUM LEVEL 142 MEQ/L (136-145)
[2021-11-06 02:04] LABS: CHLORIDE LEVEL 106 MEQ/L (98-107)
[2021-11-06] MEDS ORDERED: BUDE10.2 PO (02:35)
[2021-11-06] MEDS ORDERED: URSO300C3 PO (02:35)
[2021-11-06] MEDS ORDERED: INCR1INH PO (02:35)
[2021-11-06] MEDS ORDERED: PRED20TA PO (02:35)
[2021-11-06] MEDS ORDERED: NYST50SS PO (02:35)
[2021-11-06] MEDS ORDERED: med rec comment (02:49)
[2021-11-06] MEDS ORDERED: HOME MED LIST COMPLETE! XX SCH (02:50)
[2021-11-06] MEDS ORDERED: ACETAMINOPHEN TAB 650MG DOSE (2X325MG) PO PRN (03:00)
[2021-11-06] MEDS ORDERED: MOM 30ML SUSPENSION UDC PO PRN (03:00)
[2021-11-06] MEDS ORDERED: AZITHROMYCIN INJ 500 MG, VIAL MATE ADAPTER 1 EACH in NS 250 ML IV SCH (04:00)
[2021-11-06] MEDS: LEVOTHYROXINE 75MCG TABLET (0.075MG) PO SCH (06:09)
[2021-11-06 07:14] LABS: HEMATOCRIT 41.8 % (36.0-47.0); HEMOGLOBIN 13.4 g/dl (12.0-15.5); MEAN CORPUSCULAR HEMOGLOBIN 29.6 pg (27.0-33.0); MEAN CORPUSCULAR HGB CONC 32.1 g/dl (32.0-36.5); MEAN CORPUSCULAR VOLUME 92.3 fl (80.0-96.0); PLATELET COUNT, AUTOMATED 266 10^3/uL (150-450); RED BLOOD COUNT 4.53 10^6/uL (4.00-5.40); WHITE BLOOD COUNT 11.4 10^3/uL (4.0-10.0)
[2021-11-06 07:22] LABS: BLOOD UREA NITROGEN 17 MG/DL (7-18); CARBON DIOXIDE LEVEL 30 MEQ/L (21-32); CHLORIDE LEVEL 106 MEQ/L (98-107); CREATININE FOR GFR 0.82 MG/DL (0.55-1.30); GLOMERULAR FILTRATION RATE > 60.0 (>51); GLUCOSE, FASTING 150 MG/DL (70-100); POTASSIUM SERUM 4.2 MEQ/L (3.5-5.1); SODIUM LEVEL 141 MEQ/L (136-145)
[2021-11-06] MEDS: IPRATROPIUM 0.5MG/ALBUTEROL 2.5MG INH SOL UD 3ML (DUONEB) NEB SCH ×3 (08:18→20:49)
[2021-11-06] MEDS: SYMBICORT 160/4.5MCG INHALER 6GM INH SCH ×2 (08:18→20:50)
[2021-11-06] MEDS: ENOXAPARIN 40MG/0.4ML SYRINGE (J1650 PER 10MG) SC SCH (08:38)
[2021-11-06] MEDS: ursodioL 300MG CAP PO SCH ×2 (08:39→21:34)
[2021-11-06] MEDS ORDERED: predniSONE 20 MG TAB PO SCH (09:00)
[2021-11-06 09:30] VITALS: BP 146/79
[2021-11-06] MEDS: LevoFLOXacin IV 500 MG in IV 1 EA IV SCH (10:25)
[2021-11-06 14:00] VITALS: BP 118/58
[2021-11-06] MEDS: ALBUTEROL SULFATE 2.5 MG/0.5 ML INH NEB SOLN NEB PRN (16:08)
[2021-11-06 20:00] VITALS: BP 120/60
[2021-11-06] MEDS: methylPREDNISolone 125MG 2ML VIAL IV SCH (21:34)
[2021-11-06] MEDS: guaiFENesin ER 600 MG TAB PO PRN (21:34)
[2021-11-07 05:30] VITALS: BP 164/91
[2021-11-07] MEDS: LEVOTHYROXINE 75MCG TABLET (0.075MG) PO SCH (05:38)
[2021-11-07] MEDS: IPRATROPIUM 0.5MG/ALBUTEROL 2.5MG INH SOL UD 3ML (DUONEB) NEB SCH ×4 (05:38→19:56)
[2021-11-07 06:14] LABS: HEMATOCRIT 43.8 % (36.0-47.0); HEMOGLOBIN 14.2 g/dl (12.0-15.5); MEAN CORPUSCULAR HEMOGLOBIN 29.8 pg (27.0-33.0); MEAN CORPUSCULAR HGB CONC 32.4 g/dl (32.0-36.5); PLATELET COUNT, AUTOMATED 291 10^3/uL (150-450); RED BLOOD COUNT 4.76 10^6/uL (4.00-5.40); WHITE BLOOD COUNT 14.1 10^3/uL (4.0-10.0)
[2021-11-07 06:29] VITALS: BP 150/82
[2021-11-07 06:45] LABS: BLOOD UREA NITROGEN 20 MG/DL (7-18); CALCIUM LEVEL 9.8 MG/DL (8.5-10.1); CARBON DIOXIDE LEVEL 32 MEQ/L (21-32); CHLORIDE LEVEL 102 MEQ/L (98-107); GLOMERULAR FILTRATION RATE > 60.0 (>51); GLUCOSE, FASTING 133 MG/DL (70-100); POTASSIUM SERUM 4.2 MEQ/L (3.5-5.1); SODIUM LEVEL 140 MEQ/L (136-145)
[2021-11-07] MEDS: SYMBICORT 160/4.5MCG INHALER 6GM INH SCH ×2 (07:38→19:56)
[2021-11-07] MEDS ORDERED: predniSONE 20 MG TAB PO SCH (09:00)
[2021-11-07] MEDS: ENOXAPARIN 40MG/0.4ML SYRINGE (J1650 PER 10MG) SC SCH (09:05)
[2021-11-07] MEDS: LevoFLOXacin IV 500 MG in IV 1 EA IV SCH (09:05)
[2021-11-07] MEDS: ursodioL 300MG CAP PO SCH ×2 (09:05→20:17)
[2021-11-07] MEDS: methylPREDNISolone 125MG 2ML VIAL IV SCH (09:05)
[2021-11-07] MEDS: guaiFENesin ER 600 MG TAB PO PRN (10:00)
[2021-11-07] MEDS ORDERED: DOXYCYCLINE HYCLATE 100MG TABLET PO SCH (10:00)
[2021-11-07] MEDS: ALBUTEROL SULFATE 2.5 MG/0.5 ML INH NEB SOLN NEB PRN ×2 (11:31→20:28)
[2021-11-07 14:00] VITALS: BP 147/79
[2021-11-07] MEDS: DOXYCYCLINE HYCLATE 100MG TABLET PO SCH (20:17)
[2021-11-07] MEDS: guaiFENesin ER 600 MG TAB PO SCH (20:17)
[2021-11-07 22:00] VITALS: BP 151/88
[2021-11-08] MEDS: IPRATROPIUM 0.5MG/ALBUTEROL 2.5MG INH SOL UD 3ML (DUONEB) NEB SCH ×4 (01:55→20:24)
[2021-11-08] MEDS: LEVOTHYROXINE 75MCG TABLET (0.075MG) PO SCH (05:30)
[2021-11-08] MEDS: ALBUTEROL SULFATE 2.5 MG/0.5 ML INH NEB SOLN NEB PRN (05:32)
[2021-11-08 06:00] VITALS: BP 135/75
[2021-11-08 06:21] LABS: HEMATOCRIT 43.8 % (36.0-47.0); HEMOGLOBIN 14.1 g/dl (12.0-15.5); MEAN CORPUSCULAR HEMOGLOBIN 29.7 pg (27.0-33.0); MEAN CORPUSCULAR HGB CONC 32.2 g/dl (32.0-36.5); MEAN CORPUSCULAR VOLUME 92.2 fl (80.0-96.0); PLATELET COUNT, AUTOMATED 239 10^3/uL (150-450); RED BLOOD COUNT 4.75 10^6/uL (4.00-5.40); WHITE BLOOD COUNT 15.7 10^3/uL (4.0-10.0)
[2021-11-08 06:52] LABS: BLOOD UREA NITROGEN 26 MG/DL (7-18); CALCIUM LEVEL 9.1 MG/DL (8.5-10.1); CARBON DIOXIDE LEVEL 33 MEQ/L (21-32); CHLORIDE LEVEL 105 MEQ/L (98-107); GLOMERULAR FILTRATION RATE > 60.0 (>51); GLUCOSE, FASTING 77 MG/DL (70-100); POTASSIUM SERUM 4.4 MEQ/L (3.5-5.1); SODIUM LEVEL 140 MEQ/L (136-145)
[2021-11-08] MEDS: SYMBICORT 160/4.5MCG INHALER 6GM INH SCH ×2 (08:57→20:24)
[2021-11-08] MEDS: ENOXAPARIN 40MG/0.4ML SYRINGE (J1650 PER 10MG) SC SCH (09:05)
[2021-11-08] MEDS: guaiFENesin ER 600 MG TAB PO SCH ×2 (09:06→21:26)
[2021-11-08] MEDS: ursodioL 300MG CAP PO SCH ×2 (09:06→21:26)
[2021-11-08] MEDS: predniSONE 20 MG TAB PO SCH (09:06)
[2021-11-08] MEDS: DOXYCYCLINE HYCLATE 100MG TABLET PO SCH ×2 (09:06→21:26)
[2021-11-08] MEDS ORDERED: ACETYLCYSTEINE 10% 30 ML VIAL INH ONE (10:30)
[2021-11-08 14:00] VITALS: BP 116/84
[2021-11-08] MEDS: DEXTROMETHORPHAN 60MG/10ML SUSP 90ML BTL(DELSYM) PO PRN (18:45)
[2021-11-08 22:00] VITALS: BP 133/72
[2021-11-09] MEDS: IPRATROPIUM 0.5MG/ALBUTEROL 2.5MG INH SOL UD 3ML (DUONEB) NEB SCH ×2 (02:00→06:11)
[2021-11-09 06:00] VITALS: BP 136/90
[2021-11-09 06:01] LABS: HEMATOCRIT 43.7 % (36.0-47.0); HEMOGLOBIN 14.1 g/dl (12.0-15.5); MEAN CORPUSCULAR HEMOGLOBIN 29.9 pg (27.0-33.0); MEAN CORPUSCULAR HGB CONC 32.3 g/dl (32.0-36.5); MEAN CORPUSCULAR VOLUME 92.6 fl (80.0-96.0); PLATELET COUNT, AUTOMATED 253 10^3/uL (150-450); RED BLOOD COUNT 4.72 10^6/uL (4.00-5.40); WHITE BLOOD COUNT 12.9 10^3/uL (4.0-10.0)
[2021-11-09 06:27] LABS: BLOOD UREA NITROGEN 24 MG/DL (7-18); CALCIUM LEVEL 8.9 MG/DL (8.5-10.1); CARBON DIOXIDE LEVEL 34 MEQ/L (21-32); CHLORIDE LEVEL 103 MEQ/L (98-107); CREATININE FOR GFR 0.83 MG/DL (0.55-1.30); GLOMERULAR FILTRATION RATE > 60.0 (>51); GLUCOSE, FASTING 68 MG/DL (70-100); POTASSIUM SERUM 4.4 MEQ/L (3.5-5.1); SODIUM LEVEL 139 MEQ/L (136-145)
[2021-11-09] MEDS: LEVOTHYROXINE 75MCG TABLET (0.075MG) PO SCH (06:29)
[2021-11-09] MEDS ORDERED: TIOTROPIUM INHALER/CAPSULE (SPIRIVA) INH SCH (08:00)
[2021-11-09] MEDS: ALBUTEROL SULFATE 2.5 MG/0.5 ML INH NEB SOLN NEB PRN (08:28)
[2021-11-09] MEDS: SYMBICORT 160/4.5MCG INHALER 6GM INH SCH (08:29)
[2021-11-09] MEDS: ursodioL 300MG CAP PO SCH (09:04)
[2021-11-09] MEDS: DOXYCYCLINE HYCLATE 100MG TABLET PO SCH (09:05)
[2021-11-09] MEDS: predniSONE 20 MG TAB PO SCH (09:05)
[2021-11-09] MEDS: guaiFENesin ER 600 MG TAB PO SCH (09:05)
[2021-11-09] MEDS: ENOXAPARIN 40MG/0.4ML SYRINGE (J1650 PER 10MG) SC SCH (09:06)
[2021-11-09] MEDS ORDERED: MUCI600T31 PO (10:51)
[2021-11-09] MEDS ORDERED: PRED10TA2 PO (10:51)
[2021-11-09] MEDS ORDERED: BREO1INH3 PO (10:51)
[2021-11-09] MEDS ORDERED: OMEP40CA4 PO (10:52)
[2021-11-09] MEDS: DEXTROMETHORPHAN 60MG/10ML SUSP 90ML BTL(DELSYM) PO PRN (11:22)
[2021-11-09] MEDS ORDERED: PRED20TA PO (11:45)
[2021-11-09] MEDS ORDERED: IPRA0.00 INH (11:45)
== END 2021-11-09 13:30 | disposition home health service (06) | DRG 140 ==
LOC: EDBD 22:49 → M ED 22:49 → M ED INP 11-06 03:12 → ENRESERV 11-06 08:33 → M MS5PR 11-06 09:30
PROVIDERS: ADMIT Family Medicine; ATTEND Family Medicine
DX: J44.1 Chronic obstructive pulmonary disease with (acute) exacerbation (principal); J96.11 Chronic respiratory failure with hypoxia; K74.3 Primary biliary cirrhosis; Z99.81 Dependence on supplemental oxygen; Z87.891 Personal history of nicotine dependence; Z91.14 Patient's other noncompliance with medication regimen; E03.9 Hypothyroidism, unspecified; J30.2 Other seasonal allergic rhinitis; Z98.1 Arthrodesis status; Z79.2 Long term (current) use of antibiotics; Z79.52 Long term (current) use of systemic steroids; Z79.899 Other long term (current) drug therapy; Z88.1 Allergy status to other antibiotic agents; Z88.5 Allergy status to narcotic agent; Z88.8 Allergy status to other drugs, medicaments and biological substances; D72.829 Elevated white blood cell count, unspecified

== ENCOUNTER → 2021-12-19 | Outpatient (CLI) | payer OTHER ==
[~2021-12-19] MED LIST changes: +BREO1INH3 PO; +BUDE10.2 PO; +INCR1INH PO; +IPRA0.00 INH; +OMEP40CA4 PO; +med rec comment
== END ==
LOC: M CLY 13:30
PROVIDERS: ATTEND Nurse Practitioner Family
DX: M79.641 Pain in right hand (principal)

== ENCOUNTER → 2022-03-13 | Outpatient (CLI) | payer MEDICAID, OTHER | LOC: M PLAIMG 10:03 | PROVIDERS: ATTEND Nurse Practitioner Family | DX: R06.02 Shortness of breath (principal); K76.0 Fatty (change of) liver, not elsewhere classified; I70.0 Atherosclerosis of aorta; I25.10 Atherosclerotic heart disease of native coronary artery without angina pectoris; K44.9 Diaphragmatic hernia without obstruction or gangrene; M51.44 Schmorl's nodes, thoracic region; M41.85 Other forms of scoliosis, thoracolumbar region; J43.2 Centrilobular emphysema; J98.4 Other disorders of lung ==

== ENCOUNTER → 2022-03-20 | Outpatient (REF) | payer OTHER ==
[2022-03-20 18:39] LABS: BASO % 0.2 % (0.0-1.0); HEMATOCRIT 38.3 % (36.0-47.0); HEMOGLOBIN 12.2 g/dl (12.0-15.5); LYMPH # 1.1 10^3/uL (1.5-5.0); LYMPH % 12.8 % (24.0-44.0); MEAN CORPUSCULAR HEMOGLOBIN 28.4 pg (27.0-33.0); MEAN CORPUSCULAR HGB CONC 31.9 g/dl (32.0-36.5); MEAN CORPUSCULAR VOLUME 89.1 fl (80.0-96.0); MONO # 0.1 10^3/uL (0.0-0.8); MONO % 1.7 % (2.0-8.0); NEUTROPHILS # 7.1 10^3/uL (1.5-8.5); NEUTROPHILS % 84.8 % (36.0-66.0); PLATELET COUNT, AUTOMATED 229 10^3/uL (150-450); WHITE BLOOD COUNT 8.4 10^3/uL (4.0-10.0)
[2022-03-20 19:35] LABS: ALBUMIN 3.5 GM/DL (3.2-5.2); ALT/SGPT 38 U/L (12-78); BILIRUBIN,TOTAL 0.2 MG/DL (0.2-1.0); BLOOD UREA NITROGEN 18 MG/DL (7-18); CALCIUM LEVEL 9.2 MG/DL (8.5-10.1); CARBON DIOXIDE LEVEL 27 MEQ/L (21-32); CHLORIDE LEVEL 105 MEQ/L (98-107); CHOLESTEROL LEVEL 219 MG/DL (<200); CHOLESTEROL RISK RATIO 2.576 (<5); CREATININE FOR GFR 0.81 MG/DL (0.55-1.30); FREE T4 1.06 NG/DL (0.76-1.46); GLOMERULAR FILTRATION RATE > 60.0 (>51); GLUCOSE, FASTING 132 MG/DL (70-100); HDL CHOLESTEROL 85 MG/DL (>40); IRON (FE) 103 UG/DL (50-170); LDL CHOLESTEROL 118 MG/DL (<100); NON-HDL-C 134 MG/DL; POTASSIUM SERUM 4.5 MEQ/L (3.5-5.1); SODIUM LEVEL 138 MEQ/L (136-145); THYROID STIMULATING HORMONE 0.666 uIU/ML (0.358-3.740); TRIGLYCERIDES LEVEL 82 MG/DL (<150)
== END ==
LOC: M SFHCCLAY 10:40
PROVIDERS: ATTEND Nurse Practitioner Family
DX: M50.30 Other cervical disc degeneration, unspecified cervical region (principal); R20.0 Anesthesia of skin; K74.3 Primary biliary cirrhosis; E03.9 Hypothyroidism, unspecified; F17.210 Nicotine dependence, cigarettes, uncomplicated; J44.9 Chronic obstructive pulmonary disease, unspecified; Z13.1 Encounter for screening for diabetes mellitus; M10.9 Gout, unspecified

== ENCOUNTER → 2022-04-03 | Outpatient (CLI) | payer MEDICAID | LOC: M RAD 11:13 | PROVIDERS: ATTEND Nurse Practitioner Family | DX: J16.8 Pneumonia due to other specified infectious organisms (principal) ==

== ENCOUNTER → 2022-04-14 | Outpatient (CLI) | payer MEDICAID ==
[2022-04-17 10:08] LABS: MYCOPLASMA PNEUMONIAE IgG 754 U/mL (0-99); MYCOPLASMA PNEUMONIAE IgM 1001 U/mL (0-769)
== END ==
LOC: M LAB 08:38
PROVIDERS: ATTEND Nurse Practitioner Family
DX: R06.02 Shortness of breath (principal); Z87.01 Personal history of pneumonia (recurrent)

== ENCOUNTER → 2022-05-09 | Outpatient (CLI) | payer MEDICAID, OTHER | LOC: M PLAIMG 12:52 | PROVIDERS: ATTEND Nurse Practitioner Family | DX: R91.8 Other nonspecific abnormal finding of lung field (principal) ==

== ENCOUNTER → 2022-07-31 | Outpatient (CLI) | payer OTHER ==
[~2022-07-31] MED LIST changes: +NYST-38 PO; -NYST50SS PO
[2022-07-31 14:09] LABS: BASO # 0.1 10^3/uL (0.0-0.2); EOS # 0.1 10^3/uL (0.0-0.5); EOS % 0.8 % (0.0-3.0); HEMATOCRIT 40.6 % (36.0-47.0); LYMPH # 1.8 10^3/uL (1.5-5.0); LYMPH % 25.5 % (24.0-44.0); MEAN CORPUSCULAR HEMOGLOBIN 29.3 pg (27.0-33.0); MEAN CORPUSCULAR VOLUME 91.6 fl (80.0-96.0); MONO # 0.4 10^3/uL (0.0-0.8); MONO % 5.5 % (2.0-8.0); NEUTROPHILS # 4.8 10^3/uL (1.5-8.5); NEUTROPHILS % 66.9 % (36.0-66.0); PLATELET COUNT, AUTOMATED 252 10^3/uL (150-450); RED BLOOD COUNT 4.43 10^6/uL (4.00-5.40); WHITE BLOOD COUNT 7.1 10^3/uL (4.0-10.0)
[2022-07-31 14:33] LABS: IMMUNOGLOBULIN A 203.4 MG/DL (40-350); IMMUNOGLOBULIN G 961 MG/DL (650-1600)
[2022-07-31 14:43] LABS: ERYTHROCYTE SEDIMENTATION RATE 81 mm/hr (0-30)
[2022-07-31 14:48] LABS: ALBUMIN 3.8 G/DL (3.2-5.2); ALKALINE PHOSPHATASE 138 U/L (46-116); ALT/SGPT 84 U/L (7.0-40); AST/SGOT 56 U/L (<34); BILIRUBIN,TOTAL 0.3 MG/DL (0.3-1.2); BLOOD UREA NITROGEN 19 MG/DL (9-23); CALCIUM LEVEL 9.6 MG/DL (8.5-10.1); CARBON DIOXIDE LEVEL 26 MMOL/L (20-31); CHLORIDE LEVEL 105 MMOL/L (98-107); CREATININE FOR GFR 0.78 MG/DL (0.55-1.30); GLOMERULAR FILTRATION RATE > 60.0 (>51); GLUCOSE, FASTING 102 MG/DL (60-100); IMMUNOGLOBULIN E 39.4 IU/ML (0-378); SODIUM LEVEL 138 MMOL/L (136-145); TOTAL PROTEIN 7.5 G/DL (5.7-8.2)
[2022-07-31 15:16] LABS: HIV 1&2 SCREEN CENTAUR NEGATIVE (NEGATIVE)
[2022-07-31 15:23] LABS: HEPATITIS C VIRUS ABY INDEX 0.1 INDEX (<0.8)
[2022-07-31 15:26] LABS: IMMUNOGLOBULIN M 811.4 MG/DL (50-300)
== END ==
LOC: M PLALAB 10:01
PROVIDERS: ATTEND Internal Medicine Infectious Disease
DX: J18.9 Pneumonia, unspecified organism (principal)

== ENCOUNTER → 2022-09-12 | Outpatient (CLI) | payer OTHER | LOC: M PLAIMG 08:42 | PROVIDERS: ATTEND Nurse Practitioner Family | DX: R91.8 Other nonspecific abnormal finding of lung field (principal) ==

== ENCOUNTER → 2022-10-30 | Outpatient (CLI) | payer OTHER | LOC: M CLY 15:21 | PROVIDERS: ATTEND Nurse Practitioner Family | DX: M79.641 Pain in right hand (principal); M19.041 Primary osteoarthritis, right hand ==

== ENCOUNTER → 2022-10-30 | Outpatient (REF) | payer OTHER ==
[2022-10-30 18:08] LABS: BASO # 0.1 10^3/uL (0.0-0.2); BASO % 0.9 % (0.0-1.0); EOS # 0.1 10^3/uL (0.0-0.5); EOS % 2.1 % (0.0-3.0); HEMATOCRIT 38.2 % (36.0-47.0); HEMOGLOBIN 12.2 g/dl (12.0-15.5); LYMPH # 2.1 10^3/uL (1.5-5.0); LYMPH % 31.4 % (24.0-44.0); MEAN CORPUSCULAR HEMOGLOBIN 29.3 pg (27.0-33.0); MEAN CORPUSCULAR HGB CONC 31.9 g/dl (32.0-36.5); MEAN CORPUSCULAR VOLUME 91.8 fl (80.0-96.0); MONO # 0.6 10^3/uL (0.0-0.8); MONO % 8.7 % (2.0-8.0); NEUTROPHILS # 3.7 10^3/uL (1.5-8.5); NEUTROPHILS % 56.6 % (36.0-66.0); PLATELET COUNT, AUTOMATED 196 10^3/uL (150-450); RED BLOOD COUNT 4.16 10^6/uL (4.00-5.40); WHITE BLOOD COUNT 6.5 10^3/uL (4.0-10.0)
[2022-10-30 18:38] LABS: THYROID STIMULATING HORMONE 2.554 uIU/ML (0.55-4.78)
[2022-10-30 18:39] LABS: ALBUMIN 3.8 G/DL (3.2-5.2); ALKALINE PHOSPHATASE 124 U/L (46-116); ALT/SGPT 44 U/L (7.0-40); AST/SGOT 58 U/L (<34); BILIRUBIN,TOTAL 0.3 MG/DL (0.3-1.2); BLOOD UREA NITROGEN 12 MG/DL (9-23); CALCIUM LEVEL 8.5 MG/DL (8.5-10.1); CARBON DIOXIDE LEVEL 24 MMOL/L (20-31); CHLORIDE LEVEL 103 MMOL/L (98-107); FREE T4 0.96 NG/DL (0.89-1.76); GLOMERULAR FILTRATION RATE > 60.0 (>51); GLUCOSE, FASTING 79 MG/DL (60-100); POTASSIUM SERUM 4.4 MMOL/L (3.5-5.1); SODIUM LEVEL 138 MMOL/L (136-145)
[2022-10-30 18:48] LABS: HEMOGLOBIN A1c 5.7 % (4.0-6.0)
== END ==
LOC: M SFHCCLAY 15:10
PROVIDERS: ATTEND Nurse Practitioner Family
DX: J15.7 Pneumonia due to Mycoplasma pneumoniae (principal); R20.0 Anesthesia of skin; J44.9 Chronic obstructive pulmonary disease, unspecified; M50.30 Other cervical disc degeneration, unspecified cervical region; K74.3 Primary biliary cirrhosis; E03.9 Hypothyroidism, unspecified; J18.9 Pneumonia, unspecified organism

== ENCOUNTER → 2023-01-15 | Outpatient (CLI) | payer OTHER ==
[~2023-01-15] MED LIST changes: +LIDOCAINE 1% MDV 20ML VIAL As Ordered ONE
[2023-01-15 08:25] VITALS: TEMP 98
[2023-01-15 09:05] LABS: BASO # 0.1 10^3/uL (0.0-0.2); BASO % 1.2 % (0.0-1.0); EOS # 0.1 10^3/uL (0.0-0.5); EOS % 2.7 % (0.0-3.0); HEMATOCRIT 38.8 % (36.0-47.0); HEMOGLOBIN 12.4 g/dl (12.0-15.5); LYMPH % 40.6 % (24.0-44.0); MEAN CORPUSCULAR HEMOGLOBIN 28.5 pg (27.0-33.0); MEAN CORPUSCULAR VOLUME 89.2 fl (80.0-96.0); MONO # 0.4 10^3/uL (0.0-0.8); MONO % 8.7 % (2.0-8.0); NEUTROPHILS # 2.3 10^3/uL (1.5-8.5); NEUTROPHILS % 46.6 % (36.0-66.0); PLATELET COUNT, AUTOMATED 192 10^3/uL (150-450); RED BLOOD COUNT 4.35 10^6/uL (4.00-5.40); WHITE BLOOD COUNT 4.8 10^3/uL (4.0-10.0)
[2023-01-15 09:30] VITALS: BP 151/72; O2SAT 98
== END ==
LOC: M IRPRO 07:57
PROVIDERS: ATTEND Specialist
DX: D47.2 Monoclonal gammopathy (principal)

== ENCOUNTER → 2023-04-16 | Outpatient (REF) | payer OTHER ==
[~2023-04-16] MED LIST changes: -LIDOCAINE 1% MDV 20ML VIAL As Ordered ONE; +LORA-1041 PO; -LORA-674 PO
[2023-04-16 17:29] LABS: HEMATOCRIT 37.7 % (36.0-47.0); HEMOGLOBIN 12.1 g/dl (12.0-15.5); MEAN CORPUSCULAR HEMOGLOBIN 29.4 pg (27.0-33.0); MEAN CORPUSCULAR HGB CONC 32.1 g/dl (32.0-36.5); MEAN CORPUSCULAR VOLUME 91.7 fl (80.0-96.0); PLATELET COUNT, AUTOMATED 215 10^3/uL (150-450); RED BLOOD COUNT 4.11 10^6/uL (4.00-5.40); WHITE BLOOD COUNT 5.5 10^3/uL (4.0-10.0)
[2023-04-16 17:53] LABS: HEMOGLOBIN A1c 5.4 % (4.0-6.0)
[2023-04-16 17:56] LABS: ALBUMIN 3.6 G/DL (3.2-5.2); ALKALINE PHOSPHATASE 165 U/L (46-116); ALT/SGPT 65 U/L (7.0-40); AST/SGOT 68 U/L (<34); BILIRUBIN,TOTAL 0.2 MG/DL (0.3-1.2); BLOOD UREA NITROGEN 13 MG/DL (9-23); CARBON DIOXIDE LEVEL 26 MMOL/L (20-31); CHLORIDE LEVEL 107 MMOL/L (98-107); CHOLESTEROL LEVEL 208 MG/DL (<200); CHOLESTEROL RISK RATIO 3.88 (<5); CREATININE FOR GFR 0.88 MG/DL (0.55-1.30); GLOMERULAR FILTRATION RATE > 60.0 (>51); GLUCOSE, FASTING 93 MG/DL (60-100); HDL CHOLESTEROL 53.6 MG/DL (>40); LDL CHOLESTEROL 118.8 MG/DL (<100); NON-HDL-C 154.4 MG/DL; POTASSIUM SERUM 4.7 MMOL/L (3.5-5.1); SODIUM LEVEL 143 MMOL/L (136-145); TOTAL PROTEIN 7.1 G/DL (5.7-8.2); TRIGLYCERIDES LEVEL 178 MG/DL (<150)
[2023-04-16 17:57] LABS: FREE T4 0.89 NG/DL (0.89-1.76)
[2023-04-16 18:51] LABS: ATYPICAL LYMPH 16 % (0-5); BASOPHILS 1 % (0-1); EOSINOPHILS 3 % (0-3); LYMPHOCYTES 38 % (16-44); MONOCYTES 6 % (0-5); NEUTROPHILS 33 % (28-66); PLATELET ESTIMATE NORMAL (NORMAL)
== END ==
LOC: M SFHCCLAY 10:59
PROVIDERS: ATTEND Nurse Practitioner Family
DX: J44.9 Chronic obstructive pulmonary disease, unspecified (principal); R73.03 Prediabetes; M50.30 Other cervical disc degeneration, unspecified cervical region; K74.3 Primary biliary cirrhosis; E03.9 Hypothyroidism, unspecified; J45.909 Unspecified asthma, uncomplicated; K21.9 Gastro-esophageal reflux disease without esophagitis

== ENCOUNTER → 2023-07-30 | Outpatient (CLI) | payer OTHER ==
[~2023-07-30] MED LIST changes: +CHOL10CA2 PO; -D3400CAP PO
== END ==
LOC: M PLAIMG 10:37
PROVIDERS: ATTEND Nurse Practitioner Family
DX: J43.9 Emphysema, unspecified (principal); R91.8 Other nonspecific abnormal finding of lung field; R91.1 Solitary pulmonary nodule

== ENCOUNTER → 2024-06-30 | Outpatient (REF) | payer OTHER ==
[~2024-06-30] MED LIST changes: +DOXY-441 PO; -DOXY-443 PO; +FLUT12AE2; +ZITH500T PO
[2024-06-30 15:17] LABS: ALKALINE PHOSPHATASE 108 U/L (35-104); ALT/SGPT 49 U/L (7.0-40); AST/SGOT 50 U/L (<34); BILIRUBIN,TOTAL 0.3 MG/DL (0.3-1.2); BLOOD UREA NITROGEN 17 MG/DL (9-23); CALCIUM LEVEL 8.9 MG/DL (8.5-10.1); CARBON DIOXIDE LEVEL 28 MMOL/L (20-31); CHLORIDE LEVEL 105 MMOL/L (98-107); CHOLESTEROL LEVEL 190 MG/DL (<200); CHOLESTEROL RISK RATIO 3.13 (<5); CREATININE FOR GFR 0.67 MG/DL (0.55-1.30); GLOMERULAR FILTRATION RATE > 60.0 (>51); GLUCOSE, FASTING 78 MG/DL (60-100); HDL CHOLESTEROL 60.6 MG/DL (>40); LDL CHOLESTEROL 110.8 MG/DL (<100); NON-HDL-C 129.4 MG/DL; POTASSIUM SERUM 4.3 MMOL/L (3.5-5.1); SODIUM LEVEL 142 MMOL/L (136-145); TOTAL PROTEIN 7.6 G/DL (5.7-8.2); TRIGLYCERIDES LEVEL 93 MG/DL (<150)
[2024-06-30 15:21] LABS: THYROID STIMULATING HORMONE 3.334 uIU/ML (0.55-4.78)
[2024-06-30 15:22] LABS: FREE T4 1.26 NG/DL (0.89-1.76)
[2024-06-30 15:34] LABS: BASO # 0.1 10^3/uL (0.0-0.2); BASO % 1.3 % (0.0-1.0); EOS # 0.1 10^3/uL (0.0-0.5); EOS % 2.4 % (0.0-3.0); HEMATOCRIT 40.8 % (36.0-47.0); LYMPH # 2.3 10^3/uL (1.5-5.0); LYMPH % 42.1 % (24.0-44.0); MEAN CORPUSCULAR HEMOGLOBIN 28.3 pg (27.0-33.0); MEAN CORPUSCULAR HGB CONC 31.9 g/dl (32.0-36.5); MEAN CORPUSCULAR VOLUME 88.7 fl (80.0-96.0); MONO # 0.4 10^3/uL (0.0-0.8); MONO % 8.1 % (2.0-8.0); NEUTROPHILS # 2.5 10^3/uL (1.5-8.5); NEUTROPHILS % 45.9 % (36.0-66.0); PLATELET COUNT, AUTOMATED 208 10^3/uL (150-450); WHITE BLOOD COUNT 5.4 10^3/uL (4.0-10.0)
[2024-06-30 18:32] LABS: HEMOGLOBIN A1c 5.5 % (4.0-6.0)
== END ==
LOC: M SFHCCLAY 09:29
PROVIDERS: ATTEND Nurse Practitioner Family
DX: J44.9 Chronic obstructive pulmonary disease, unspecified (principal); R73.03 Prediabetes; M50.30 Other cervical disc degeneration, unspecified cervical region; K74.3 Primary biliary cirrhosis; E03.9 Hypothyroidism, unspecified; J45.909 Unspecified asthma, uncomplicated; K21.9 Gastro-esophageal reflux disease without esophagitis

== ENCOUNTER → 2025-02-26 | Outpatient (REF) | payer OTHER ==
[2025-02-26 17:57] LABS: FREE T4 1.04 NG/DL (0.89-1.76)
== END ==
LOC: M SFHCCLAY 10:05
PROVIDERS: ATTEND Nurse Practitioner Family
DX: J44.9 Chronic obstructive pulmonary disease, unspecified (principal); M50.30 Other cervical disc degeneration, unspecified cervical region; K74.3 Primary biliary cirrhosis; E03.9 Hypothyroidism, unspecified; J45.909 Unspecified asthma, uncomplicated; K21.9 Gastro-esophageal reflux disease without esophagitis; R73.03 Prediabetes

== ENCOUNTER → 2025-03-30 | Outpatient (REF) | payer OTHER ==
[2025-03-30 13:41] LABS: BASO # 0.1 10^3/uL (0.0-0.2); BASO % 0.7 % (0.0-1.0); EOS # 0.1 10^3/uL (0.0-0.5); EOS % 1.7 % (0.0-3.0); LYMPH # 2.4 10^3/uL (1.5-5.0); LYMPH % 33.1 % (24.0-44.0); MONO # 0.6 10^3/uL (0.0-0.8); MONO % 8.6 % (2.0-8.0); NEUTROPHILS # 4.0 10^3/uL (1.5-8.5); NEUTROPHILS % 55.6 % (36.0-66.0); PLATELET COUNT, AUTOMATED 279 10^3/uL (150-450)
[2025-03-30 13:44] LABS: C REACTIVE PROTEIN QUANTITATIV 4.15 MG/DL (<1.0)
[2025-03-30 13:49] LABS: IMMUNOGLOBULIN E 10.7 IU/ML (0-378)
[2025-04-03 18:08] LABS: ASPERGILLUS FLAVUS ABY Negative (Negative); ASPERGILLUS FUMIGATUS ABY Negative (Negative); ASPERGILLUS NIGER ABY Negative (Negative)
== END ==
LOC: M SFHCCLAY 08:12
PROVIDERS: ATTEND Internal Medicine Infectious Disease
DX: B44.89 Other forms of aspergillosis (principal)

== ENCOUNTER → 2025-05-25 | Outpatient (REF) | payer OTHER | LOC: M SFHCCLAY 17:12 | PROVIDERS: ATTEND Nurse Practitioner Family | DX: J02.9 Acute pharyngitis, unspecified (principal) ==